=== PATIENT | female | born 1940 | race Caucasian/White ===

== ENCOUNTER → 2020-03-16 10:01 | Outpatient (CLI) | payer MEDICARE, OTHER, SELFPAY ==
--- NOTE | 2020-03-16 10:11 | RAD_ITS ---
STUDY: X-RAY - PELVIS REASON FOR EXAM: Female, 79 years old. inflammatory polyarthropathy TECHNIQUE: One view of the pelvis was obtained. COMPARISON: None. FINDINGS: There is a non-specific bowel gas pattern. Normal visualized soft tissue structures. Normal bilateral iliac wings, sacroiliac joints and visualized sacrum. Normal visualized bilateral superior and inferior pubic rami. Normal pubic symphysis. Normal ischial tuberosities. Normal visualized right femoral head. Normal right acetabulum. Normal right hip joint. Status post left total hip arthroplasty. The prosthesis appears located. No ostial lysis to suggest loosening.. RAD/Pelvis 1 or 2 Views IMPRESSION: Normal x-ray examination of the pelvis after total hip arthroplasty. Electronically Signed: Sebas Orellana MD at 16:54 EST Tel , Service support ,
[2020-03-16 12:34] LABS: Erythrocyte Sedimentation Rate 45 mm/hr (0-30)
[2020-03-16 12:41] LABS: Absolute Lymphocyte Count 2.04 X10^3/uL (0.83-4.51); Absolute Neutrophil Count 4.5 X10^3/uL (2.0-7.7); Basophil# 0.07 X10^3/uL; Eosinophil# 0.09 X10^3/uL; Eosinophils% 1.2 % (0-5); Hematocrit 41.1 % (37-47); Hemoglobin 13.4 g/dL (12.0-15.0); Lymphocyte # 2.04 X10^3/ul (4.0); Lymphocyte % 27.8 % (19-41); Mean Corp Hgb Conc 32.6 g/dL (32-36); Mean Corpuscular Hgb 30.3 pg (27.0-32.0); Mean Platelet Vol. 10.7 fl (6.2-12.0); Monocyte# 0.61 X10^3/uL; Monocyte% 8.3 % (0-10); NRBC Flagged by Analyzer 0 % (0-5); Neutrophil # 4.52 X10^3/uL (2.7-7.7); Neutrophil % 61.4 % (47-70); Platelet Count 310 K/mm3 (150-450); RBC Distribution Width CV 11.9 % (11.6-14.6); RBC Distribution Width SD 40.5 fl (35.1-43.9); Red Blood Count 4.42 M/mm3 (4.2-5.4); White Blood Count 7.4 K/mm3 (4.4-11.0)
[2020-03-16 12:43] LABS: ALB/GLOB Ratio 0.9 RATIO (0.9-2.4); AST(SGOT) 17 U/L (15-37); Alanine Aminotransfer ALT/SGPT 20 U/L (13-56); Albumin, Serum 3.9 g/dL (3.2-5.0); Alkaline Phosphatase 108 U/L (45-117); Anion Gap 4 (5-15); BUN 17 mg/dL (7-18); BUN/Creat Ratio 18.9 RATIO (10-20); CRP 7.96 mg/L (0.0-3.0); Calcium,Total 9.2 mg/dL (8.5-10.1); Chloride 105 mmol/L (98-107); EST Glomerular Filtration Rate 64 mL/min (>60); Est Glom Filt Rate - Afr Amer 77 mL/min (>60); Globulin 4.2 g/dL (2.2-4.2); Glucose 95 mg/dL (74-106); Potassium 3.9 mmol/L (3.5-5.1); Protein, Total 8.1 g/dL (6.4-8.2); Rheumatoid Factor < 10.0 IU/mL (<15); Sodium Level 138 mmol/L (136-145)
[2020-03-16 13:10] LABS: Hepatitis B Surf AB - EMP Non-Reactive; Hepatitis B Surface Antigen Non-Reactive (Nonreactive); Hepatitis C Antibody Non-Reactive (Nonreactive)
[2020-03-18 14:34] LABS: CCP IgG Antibodies 4 units (0-19); Hepatitis B Core AB IgM Negative (Negative)
== END ==
PROVIDERS: PCP Student in an Organized Health Care Education/Training Program; Referring Provider Internal Medicine Rheumatology; Visit Provider Internal Medicine Rheumatology
DX: M06.4 Inflammatory polyarthropathy (principal); M79.7 Fibromyalgia; M47.897 Other spondylosis, lumbosacral region; M48.02 Spinal stenosis, cervical region; K22.70 Barrett's esophagus without dysplasia
CPT/HCPCS: 36415; 72170; 80053; 85025; 85652; 86140; 86200; 86431; 86705; 86706; 86803; 87340

== ENCOUNTER → 2020-05-31 11:07 | Outpatient (CLI) | payer MEDICARE, OTHER, SELFPAY ==
[2020-05-31 12:23] LABS: Absolute Lymphocyte Count 2.38 X10^3/uL (0.83-4.51); Basophil# 0.07 X10^3/uL; Basophil% 1.1 % (0-1); Eosinophil# 0.13 X10^3/uL; Eosinophils% 2.1 % (0-5); Hematocrit 39.7 % (37-47); Hemoglobin 12.7 g/dL (12.0-15.0); Lymphocyte # 2.38 X10^3/ul (4.0); Lymphocyte % 38.4 % (19-41); Mean Corpuscular Hgb 30.5 pg (27.0-32.0); Mean Corpuscular Volume 95.4 fL (81-99); Mean Platelet Vol. 10.4 fl (6.2-12.0); Monocyte# 0.62 X10^3/uL; NRBC Flagged by Analyzer 0 % (0-5); Neutrophil # 2.99 X10^3/uL (2.7-7.7); Neutrophil % 48.2 % (47-70); Platelet Count 252 K/mm3 (150-450); RBC Distribution Width CV 13.2 % (11.6-14.6); RBC Distribution Width SD 45.9 fl (35.1-43.9); Red Blood Count 4.16 M/mm3 (4.2-5.4); White Blood Count 6.2 K/mm3 (4.4-11.0)
[2020-05-31 12:48] LABS: AST(SGOT) 20 U/L (15-37); Alanine Aminotransfer ALT/SGPT 22 U/L (13-56); Albumin, Serum 3.8 g/dL (3.2-5.0); Alkaline Phosphatase 98 U/L (45-117); Anion Gap 2 (5-15); BUN 23 mg/dL (7-18); BUN/Creat Ratio 23.5 RATIO (10-20); Calcium,Total 9.4 mg/dL (8.5-10.1); Chloride 102 mmol/L (98-107); Creatinine, Serum 0.98 mg/dL (0.55-1.02); EST Glomerular Filtration Rate 58 mL/min (>60); Est Glom Filt Rate - Afr Amer 70 mL/min (>60); Glucose 86 mg/dL (74-106); Potassium 4.3 mmol/L (3.5-5.1); Protein, Total 7.8 g/dL (6.4-8.2); Sodium Level 135 mmol/L (136-145)
== END ==
PROVIDERS: PCP Student in an Organized Health Care Education/Training Program; Referring Provider Internal Medicine Rheumatology; Visit Provider Internal Medicine Rheumatology
DX: M06.4 Inflammatory polyarthropathy (principal); M79.7 Fibromyalgia; M47.897 Other spondylosis, lumbosacral region; M48.02 Spinal stenosis, cervical region; K22.70 Barrett's esophagus without dysplasia; Q80.9 Congenital ichthyosis, unspecified; Z79.899 Other long term (current) drug therapy
CPT/HCPCS: 36415; 80053; 85025

== ENCOUNTER → 2020-07-13 09:52 | Outpatient (CLI) | payer MEDICARE, OTHER, SELFPAY ==
[2020-07-13 12:31] LABS: Absolute Lymphocyte Count 1.61 X10^3/uL (0.83-4.51); Basophil# 0.06 X10^3/uL; Eosinophil# 0.08 X10^3/uL; Eosinophils% 1.3 % (0-5); Hematocrit 40.8 % (37-47); Hemoglobin 12.8 g/dL (12.0-15.0); Lymphocyte # 1.61 X10^3/ul (0.83-4.51); Lymphocyte % 25.7 % (19-41); Mean Corp Hgb Conc 31.4 g/dL (32-36); Mean Corpuscular Volume 95.8 fL (81-99); Mean Platelet Vol. 10.4 fl (6.2-12.0); Monocyte# 0.48 X10^3/uL; Monocyte% 7.7 % (0-10); NRBC Flagged by Analyzer 0 % (0-5); Neutrophil # 4.03 X10^3/uL (2.7-7.7); Neutrophil % 64.1 % (47-70); Platelet Count 243 K/mm3 (150-450); RBC Distribution Width CV 13.7 % (11.6-14.6); RBC Distribution Width SD 47.8 fl (35.1-43.9); Red Blood Count 4.26 M/mm3 (4.2-5.4); White Blood Count 6.3 K/mm3 (4.4-11.0)
[2020-07-13 12:56] LABS: AST(SGOT) 16 U/L (15-37); Alanine Aminotransfer ALT/SGPT 22 U/L (13-56); Albumin, Serum 3.8 g/dL (3.2-5.0); Alkaline Phosphatase 81 U/L (45-117); Anion Gap 4 (5-15); BUN 21 mg/dL (7-18); BUN/Creat Ratio 20.4 RATIO (10-20); Calcium,Total 9.8 mg/dL (8.5-10.1); Chloride 103 mmol/L (98-107); Creatinine, Serum 1.03 mg/dL (0.55-1.02); EST Glomerular Filtration Rate 55 mL/min (>60); Est Glom Filt Rate - Afr Amer 66 mL/min (>60); Globulin 3.8 g/dL (2.2-4.2); Glucose 89 mg/dL (74-106); Potassium 4.1 mmol/L (3.5-5.1); Protein, Total 7.6 g/dL (6.4-8.2); Sodium Level 138 mmol/L (136-145)
== END ==
PROVIDERS: PCP Student in an Organized Health Care Education/Training Program; Referring Provider Internal Medicine Rheumatology; Visit Provider Internal Medicine Rheumatology
DX: M06.4 Inflammatory polyarthropathy (principal); M79.7 Fibromyalgia; M47.897 Other spondylosis, lumbosacral region; M48.02 Spinal stenosis, cervical region; K22.70 Barrett's esophagus without dysplasia; Q80.9 Congenital ichthyosis, unspecified; Z79.899 Other long term (current) drug therapy
CPT/HCPCS: 36415; 80053; 85025

== ENCOUNTER → 2020-10-01 14:25 | Outpatient (CLI) | payer MEDICARE, OTHER, SELFPAY ==
[2020-10-01 17:44] LABS: Absolute Lymphocyte Count 1.97 X10^3/uL (0.83-4.51); Absolute Neutrophil Count 4.6 X10^3/uL (2.0-7.7); Basophil# 0.06 X10^3/uL; Basophil% 0.8 % (0-1); Eosinophils% 1.4 % (0-5); Hematocrit 37.4 % (37-47); Lymphocyte # 1.97 X10^3/ul (0.83-4.51); Lymphocyte % 26.9 % (19-41); Mean Corp Hgb Conc 32.1 g/dL (32-36); Mean Corpuscular Hgb 31.8 pg (27.0-32.0); Mean Corpuscular Volume 99.2 fL (81-99); Monocyte# 0.56 X10^3/uL; Monocyte% 7.7 % (0-10); NRBC Flagged by Analyzer 0 % (0-5); Neutrophil # 4.61 X10^3/uL (2.7-7.7); Neutrophil % 62.9 % (47-70); Platelet Count 243 K/mm3 (150-450); RBC Distribution Width CV 14.3 % (11.6-14.6); RBC Distribution Width SD 51.4 fl (35.1-43.9); Red Blood Count 3.77 M/mm3 (4.2-5.4); White Blood Count 7.3 K/mm3 (4.4-11.0)
[2020-10-01 18:12] LABS: ALB/GLOB Ratio 1.1 RATIO (0.9-2.4); AST(SGOT) 22 U/L (15-37); Alanine Aminotransfer ALT/SGPT 32 U/L (13-56); Albumin, Serum 3.7 g/dL (3.2-5.0); Alkaline Phosphatase 83 U/L (45-117); Anion Gap 6 (5-15); BUN 16 mg/dL (7-18); Calcium,Total 8.8 mg/dL (8.5-10.1); Chloride 102 mmol/L (98-107); EST Glomerular Filtration Rate 57 mL/min (>60); Est Glom Filt Rate - Afr Amer 69 mL/min (>60); Globulin 3.5 g/dL (2.2-4.2); Glucose 120 mg/dL (74-106); Potassium 4.2 mmol/L (3.5-5.1); Protein, Total 7.2 g/dL (6.4-8.2); Sodium Level 137 mmol/L (136-145)
== END ==
PROVIDERS: PCP Student in an Organized Health Care Education/Training Program; Referring Provider Internal Medicine Rheumatology; Visit Provider Internal Medicine Rheumatology
DX: M06.4 Inflammatory polyarthropathy (principal); M79.7 Fibromyalgia; M47.897 Other spondylosis, lumbosacral region; M48.02 Spinal stenosis, cervical region; K22.70 Barrett's esophagus without dysplasia; Q80.9 Congenital ichthyosis, unspecified; Z79.899 Other long term (current) drug therapy
CPT/HCPCS: 36415; 80053; 85025

== ENCOUNTER → 2020-11-29 11:16 | Outpatient (CLI) | payer MEDICARE, OTHER, SELFPAY ==
[2020-11-29 15:29] LABS: Absolute Lymphocyte Count 2.13 X10^3/uL (0.83-4.51); Absolute Neutrophil Count 2.7 X10^3/uL (2.0-7.7); Basophil# 0.05 X10^3/uL; Basophil% 0.9 % (0-1); Eosinophil# 0.12 X10^3/uL; Eosinophils% 2.2 % (0-5); Hematocrit 40.2 % (37-47); Hemoglobin 12.9 g/dL (12.0-15.0); Lymphocyte # 2.13 X10^3/ul (0.83-4.51); Lymphocyte % 38.2 % (19-41); Mean Corp Hgb Conc 32.1 g/dL (32-36); Mean Corpuscular Hgb 32.3 pg (27.0-32.0); Mean Corpuscular Volume 100.8 fL (81-99); Mean Platelet Vol. 10.7 fl (6.2-12.0); Monocyte% 10.8 % (0-10); NRBC Flagged by Analyzer 0 % (0-5); Neutrophil # 2.66 X10^3/uL (2.7-7.7); Neutrophil % 47.7 % (47-70); Platelet Count 268 K/mm3 (150-450); RBC Distribution Width CV 13.6 % (11.6-14.6); RBC Distribution Width SD 49.7 fl (35.1-43.9); Red Blood Count 3.99 M/mm3 (4.2-5.4); White Blood Count 5.6 K/mm3 (4.4-11.0)
[2020-11-29 15:38] LABS: AST(SGOT) 19 U/L (15-37); Alanine Aminotransfer ALT/SGPT 25 U/L (13-56); Albumin, Serum 3.9 g/dL (3.2-5.0); Alkaline Phosphatase 90 U/L (45-117); Anion Gap 6 (5-15); BUN 16 mg/dL (7-18); BUN/Creat Ratio 17.3 RATIO (10-20); Calcium,Total 9.7 mg/dL (8.5-10.1); Chloride 103 mmol/L (98-107); Creatinine, Serum 0.92 mg/dL (0.55-1.02); EST Glomerular Filtration Rate 62 mL/min (>60); Est Glom Filt Rate - Afr Amer 75 mL/min (>60); Glucose 68 mg/dL (74-106); Potassium 4.2 mmol/L (3.5-5.1); Protein, Total 7.9 g/dL (6.4-8.2); Sodium Level 140 mmol/L (136-145)
== END ==
PROVIDERS: PCP Student in an Organized Health Care Education/Training Program; Referring Provider Internal Medicine Rheumatology; Visit Provider Internal Medicine Rheumatology
DX: M06.4 Inflammatory polyarthropathy (principal); Z79.899 Other long term (current) drug therapy; M79.7 Fibromyalgia; M47.897 Other spondylosis, lumbosacral region; M48.02 Spinal stenosis, cervical region; K22.70 Barrett's esophagus without dysplasia; Q80.9 Congenital ichthyosis, unspecified
CPT/HCPCS: 36415; 80053; 85025

== ENCOUNTER → 2021-01-14 15:07 | Outpatient (CLI) | payer MEDICARE, OTHER, SELFPAY ==
[2021-01-14 17:42] LABS: Absolute Lymphocyte Count 2.24 X10^3/uL (0.83-4.51); Absolute Neutrophil Count 4.9 X10^3/uL (2.0-7.7); Basophil# 0.06 X10^3/uL; Basophil% 0.8 % (0-1); Eosinophil# 0.11 X10^3/uL; Eosinophils% 1.4 % (0-5); Hematocrit 39.8 % (37-47); Hemoglobin 12.8 g/dL (12.0-15.0); Lymphocyte # 2.24 X10^3/ul (0.83-4.51); Lymphocyte % 28.4 % (19-41); Mean Corp Hgb Conc 32.2 g/dL (32-36); Mean Corpuscular Hgb 32.2 pg (27.0-32.0); Mean Corpuscular Volume 100.3 fL (81-99); Mean Platelet Vol. 10.8 fl (6.2-12.0); Monocyte% 7.6 % (0-10); NRBC Flagged by Analyzer 0 % (0-5); Neutrophil # 4.86 X10^3/uL (2.7-7.7); Neutrophil % 61.7 % (47-70); Platelet Count 242 K/mm3 (150-450); RBC Distribution Width CV 13.3 % (11.6-14.6); RBC Distribution Width SD 48.5 fl (35.1-43.9); Red Blood Count 3.97 M/mm3 (4.2-5.4); White Blood Count 7.9 K/mm3 (4.4-11.0)
[2021-01-14 18:09] LABS: ALB/GLOB Ratio 0.9 RATIO (0.9-2.4); AST(SGOT) 21 U/L (15-37); Alanine Aminotransfer ALT/SGPT 25 U/L (13-56); Albumin, Serum 3.6 g/dL (3.2-5.0); Alkaline Phosphatase 92 U/L (45-117); Anion Gap 5 (5-15); BUN 20 mg/dL (7-18); BUN/Creat Ratio 21.8 RATIO (10-20); Calcium,Total 9.2 mg/dL (8.5-10.1); Chloride 104 mmol/L (98-107); Creatinine, Serum 0.92 mg/dL (0.55-1.02); EST Glomerular Filtration Rate 63 mL/min (>60); Est Glom Filt Rate - Afr Amer 76 mL/min (>60); Glucose 76 mg/dL (74-106); Potassium 3.9 mmol/L (3.5-5.1); Protein, Total 7.6 g/dL (6.4-8.2); Sodium Level 139 mmol/L (136-145)
== END ==
PROVIDERS: PCP Student in an Organized Health Care Education/Training Program; Referring Provider Internal Medicine Rheumatology; Visit Provider Internal Medicine Rheumatology
DX: M06.4 Inflammatory polyarthropathy (principal); M79.7 Fibromyalgia; M47.897 Other spondylosis, lumbosacral region; M48.02 Spinal stenosis, cervical region; K22.70 Barrett's esophagus without dysplasia; Q80.9 Congenital ichthyosis, unspecified; Z79.899 Other long term (current) drug therapy
CPT/HCPCS: 36415; 80053; 85025

== ENCOUNTER 2021-04-06 12:33 | Outpatient (CLI) | payer MEDICARE, OTHER, SELFPAY ==
[2021-04-06 15:37] LABS: Absolute Lymphocyte Count 1.82 X10^3/uL (0.83-4.51); Absolute Neutrophil Count 3.1 X10^3/uL (2.0-7.7); Basophil# 0.06 X10^3/uL; Basophil% 1.1 % (0-1); Eosinophil# 0.03 X10^3/uL; Eosinophils% 0.6 % (0-5); Hematocrit 38.3 % (37-47); Hemoglobin 12.6 g/dL (12.0-15.0); Lymphocyte # 1.82 X10^3/ul (0.83-4.51); Lymphocyte % 33.4 % (19-41); Mean Corp Hgb Conc 32.9 g/dL (32-36); Mean Corpuscular Hgb 32.3 pg (27.0-32.0); Mean Corpuscular Volume 98.2 fL (81-99); Mean Platelet Vol. 10.6 fl (6.2-12.0); Monocyte# 0.45 X10^3/uL; Monocyte% 8.3 % (0-10); NRBC Flagged by Analyzer 0 % (0-5); Neutrophil # 3.08 X10^3/uL (2.7-7.7); Neutrophil % 56.4 % (47-70); Platelet Count 275 K/mm3 (150-450); RBC Distribution Width CV 13.4 % (11.6-14.6); RBC Distribution Width SD 47.1 fl (35.1-43.9); White Blood Count 5.5 K/mm3 (4.4-11.0)
[2021-04-06 15:52] LABS: ALB/GLOB Ratio 1.1 RATIO (0.9-2.4); AST(SGOT) 26 U/L (15-37); Alanine Aminotransfer ALT/SGPT 32 U/L (13-56); Alkaline Phosphatase 107 U/L (45-117); Anion Gap 8 (5-15); BUN 20 mg/dL (7-18); BUN/Creat Ratio 19.4 RATIO (10-20); Calcium,Total 9.4 mg/dL (8.5-10.1); Chloride 101 mmol/L (98-107); Creatinine, Serum 1.03 mg/dL (0.55-1.02); EST Glomerular Filtration Rate 55 mL/min (>60); Est Glom Filt Rate - Afr Amer 66 mL/min (>60); Globulin 3.8 g/dL (2.2-4.2); Glucose 91 mg/dL (74-106); Potassium 3.9 mmol/L (3.5-5.1); Protein, Total 7.8 g/dL (6.4-8.2); Sodium Level 136 mmol/L (136-145)
== END 2021-04-06 23:59 | disposition home or self-care (01) ==
LOC: MTLAB 12:35
PROVIDERS: PCP Student in an Organized Health Care Education/Training Program; Referring Provider Internal Medicine Rheumatology; Visit Provider Internal Medicine Rheumatology
DX: M06.4 Inflammatory polyarthropathy (principal); M79.7 Fibromyalgia; M47.897 Other spondylosis, lumbosacral region; M48.02 Spinal stenosis, cervical region; K22.70 Barrett's esophagus without dysplasia; Q80.9 Congenital ichthyosis, unspecified; Z79.899 Other long term (current) drug therapy
CPT/HCPCS: 36415; 80053; 85025

== ENCOUNTER → 2021-07-06 | Outpatient (CLI) | payer MEDICARE, OTHER, SELFPAY ==
[2021-07-06 10:11] LABS: Absolute Lymphocyte Count 1.75 X10^3/uL (0.83-4.51); Absolute Neutrophil Count 3.7 X10^3/uL (2.0-7.7); Basophil# 0.04 X10^3/uL; Basophil% 0.7 % (0-1); Eosinophil# 0.05 X10^3/uL; Eosinophils% 0.8 % (0-5); Hematocrit 39.8 % (37-47); Hemoglobin 13.2 g/dL (12.0-15.0); Lymphocyte # 1.75 X10^3/ul (0.83-4.51); Lymphocyte % 28.8 % (19-41); Mean Corp Hgb Conc 33.2 g/dL (32-36); Mean Corpuscular Hgb 32.3 pg (27.0-32.0); Mean Corpuscular Volume 97.3 fL (81-99); Monocyte# 0.54 X10^3/uL; Monocyte% 8.9 % (0-10); NRBC Flagged by Analyzer 0 % (0-5); Neutrophil # 3.67 X10^3/uL (2.7-7.7); Neutrophil % 60.5 % (47-70); Platelet Count 273 K/mm3 (150-450); RBC Distribution Width CV 13.3 % (11.6-14.6); RBC Distribution Width SD 47.5 fl (35.1-43.9); Red Blood Count 4.09 M/mm3 (4.2-5.4); White Blood Count 6.1 K/mm3 (4.4-11.0)
[2021-07-06 10:30] LABS: AST(SGOT) 18 U/L (15-37); Alanine Aminotransfer ALT/SGPT 21 U/L (13-56); Albumin, Serum 3.6 g/dL (3.2-5.0); Alkaline Phosphatase 79 U/L (45-117); Anion Gap 5 (5-15); BUN 16 mg/dL (7-18); BUN/Creat Ratio 15.2 RATIO (10-20); Calcium,Total 9.2 mg/dL (8.5-10.1); Chloride 101 mmol/L (98-107); Creatinine, Serum 1.05 mg/dL (0.55-1.02); EST Glomerular Filtration Rate 53 mL/min (>60); Est Glom Filt Rate - Afr Amer 65 mL/min (>60); Globulin 3.7 g/dL (2.2-4.2); Glucose 127 mg/dL (74-106); Potassium 3.9 mmol/L (3.5-5.1); Protein, Total 7.3 g/dL (6.4-8.2); Sodium Level 136 mmol/L (136-145)
== END | disposition home or self-care (01) ==
PROVIDERS: PCP Student in an Organized Health Care Education/Training Program; Referring Provider Internal Medicine Rheumatology; Visit Provider Internal Medicine Rheumatology
DX: M06.4 Inflammatory polyarthropathy (principal); M79.7 Fibromyalgia; M47.897 Other spondylosis, lumbosacral region; M48.02 Spinal stenosis, cervical region; K22.70 Barrett's esophagus without dysplasia; Q80.9 Congenital ichthyosis, unspecified; Z79.899 Other long term (current) drug therapy
CPT/HCPCS: 36415; 80053; 85025

== ENCOUNTER → 2021-10-10 | Outpatient (CLI) | payer MEDICARE, OTHER, SELFPAY ==
[2021-10-10 12:05] LABS: Absolute Lymphocyte Count 1.93 X10^3/uL (0.83-4.51); Absolute Neutrophil Count 2.9 X10^3/uL (2.0-7.7); Basophil# 0.04 X10^3/uL; Basophil% 0.7 % (0-1); Eosinophil# 0.11 X10^3/uL; Hematocrit 37.5 % (37-47); Hemoglobin 12.3 g/dL (12.0-15.0); Lymphocyte # 1.93 X10^3/ul (0.83-4.51); Lymphocyte % 34.4 % (19-41); Mean Corp Hgb Conc 32.8 g/dL (32-36); Mean Corpuscular Hgb 32.5 pg (27.0-32.0); Mean Corpuscular Volume 99.2 fL (81-99); Mean Platelet Vol. 10.6 fl (6.2-12.0); Monocyte# 0.62 X10^3/uL; Monocyte% 11.1 % (0-10); NRBC Flagged by Analyzer 0 % (0-5); Neutrophil % 51.6 % (47-70); Platelet Count 238 K/mm3 (150-450); RBC Distribution Width CV 13.6 % (11.6-14.6); RBC Distribution Width SD 48.9 fl (35.1-43.9); Red Blood Count 3.78 M/mm3 (4.2-5.4); White Blood Count 5.6 K/mm3 (4.4-11.0)
[2021-10-10 12:34] LABS: ALB/GLOB Ratio 1.1 RATIO (0.9-2.4); AST(SGOT) 17 U/L (15-37); Alanine Aminotransfer ALT/SGPT 17 U/L (13-56); Albumin, Serum 3.7 g/dL (3.2-5.0); Alkaline Phosphatase 70 U/L (45-117); Anion Gap 7 (5-15); BUN 19 mg/dL (7-18); BUN/Creat Ratio 19.4 RATIO (10-20); Calcium,Total 9.1 mg/dL (8.5-10.1); Chloride 102 mmol/L (98-107); Creatinine, Serum 0.98 mg/dL (0.55-1.02); EST Glomerular Filtration Rate 58 mL/min (>60); Est Glom Filt Rate - Afr Amer 70 mL/min (>60); Globulin 3.5 g/dL (2.2-4.2); Glucose 100 mg/dL (74-106); Potassium 4.2 mmol/L (3.5-5.1); Protein, Total 7.2 g/dL (6.4-8.2); Sodium Level 137 mmol/L (136-145)
== END | disposition home or self-care (01) ==
LOC: MTLAB 11:04
PROVIDERS: PCP Student in an Organized Health Care Education/Training Program; Referring Provider Internal Medicine Rheumatology; Visit Provider Internal Medicine Rheumatology
DX: M06.4 Inflammatory polyarthropathy (principal); M79.7 Fibromyalgia; M47.897 Other spondylosis, lumbosacral region; M48.02 Spinal stenosis, cervical region; K22.70 Barrett's esophagus without dysplasia; Q80.9 Congenital ichthyosis, unspecified; Z79.899 Other long term (current) drug therapy
CPT/HCPCS: 36415; 80053; 85025

== ENCOUNTER → 2021-12-06 | Outpatient (CLI) | payer MEDICARE, OTHER, SELFPAY ==
--- NOTE | 2021-12-06 07:18 | MRI_ITS ---
STUDY: MRI LUMBAR SPINE WITHOUT CONTRAST REASON FOR EXAM: Female, 81 years old. pain X 2 MONTHS INTO R LEG, NO KNOWN TRAUMA TECHNIQUE: Standardized fat and water weighted pulse sequences were obtained in the sagittal and axial planes. COMPARISON: None FINDINGS: Mild levoscoliosis of the thoracolumbar spine. There is a grade 2 spondylolisthesis at L5-S1 and a grade 1 spondylolisthesis at L4-5. For the purposes of this report the lowest completely lumbarized vertebral body is designated L5. Utilizing this numbering system there is partial lumbarization of the S1 segment. T12-L1: Mild disc desiccation. L1-2: Moderate disc desiccation, mild disc bulging, mild bilateral neural foraminal encroachment. L2-3: Moderate disc desiccation, mild disc bulging, mild bilateral facet arthropathy and ligamentous hypertrophy, moderate bilateral neural foraminal encroachment. L3-4: Moderate disc desiccation and loss of disc space height, moderate disc bulging, moderate bilateral facet arthropathy and ligamentous hypertrophy, mild spinal lipomatosis, moderate central stenosis with AP diameter of the thecal sac 0.62 cm, moderate bilateral neural foraminal encroachment. L4-5: Moderate disc desiccation, severe loss of disc space height, moderate pseudobulge, moderate bilateral facet arthropathy and ligamentous hypertrophy, moderate spinal lipomatosis, severe central stenosis with AP diameter of the thecal sac 0.39 cm, moderate bilateral neural foraminal encroachment L5-S1: Moderate disc desiccation and loss of disc space height, moderate pseudobulge, severe bilateral facet arthropathy, moderate ligamentous hypertrophy, mild spinal lipomatosis, moderate central stenosis with AP diameter of the thecal sac 0.61 cm, moderate bilateral neural foraminal encroachment. Normal visualized sacral ala. Normal visualized paraspinous soft tissue structures. MRI/Spine Lumbar (Routine) IMPRESSION: Grade 2 spondylolisthesis L5-S1 and grade 1 spondylolisthesis L4-5 with moderate pseudobulge and at both of these levels. Moderate disc bulging L3-4 with mild disc bulging L1-L3. Multilevel degenerative disc disease, central stenosis, facet arthropathy and neural foraminal encroachment as above. Electronically Signed: Diego Medina MD, LEILA at 11:39 EDT ,
== END | disposition home or self-care (01) ==
LOC: MRI 07:18
PROVIDERS: PCP Student in an Organized Health Care Education/Training Program; Referring Provider Orthopaedic Surgery; Visit Provider Orthopaedic Surgery
DX: S30.0XXA Contusion of lower back and pelvis, initial encounter (principal); Z85.3 Personal history of malignant neoplasm of breast; M51.24 Other intervertebral disc displacement, thoracic region
CPT/HCPCS: 72148

== ENCOUNTER → 2021-12-27 | Outpatient (CLI) | payer MEDICARE, OTHER, SELFPAY ==
[2021-12-27 12:27] LABS: Absolute Lymphocyte Count 1.59 X10^3/uL (0.83-4.51); Absolute Neutrophil Count 3.1 X10^3/uL (2.0-7.7); Basophil# 0.07 X10^3/uL; Basophil% 1.3 % (0-1); Eosinophil# 0.13 X10^3/uL; Eosinophils% 2.4 % (0-5); Hematocrit 39.5 % (37-47); Hemoglobin 12.9 g/dL (12.0-15.0); Lymphocyte # 1.59 X10^3/ul (0.83-4.51); Lymphocyte % 29.3 % (19-41); Mean Corp Hgb Conc 32.7 g/dL (32-36); Mean Corpuscular Hgb 32.7 pg (27.0-32.0); Mean Platelet Vol. 10.3 fl (6.2-12.0); Monocyte% 9.2 % (0-10); NRBC Flagged by Analyzer 0 % (0-5); Neutrophil # 3.12 X10^3/uL (2.7-7.7); Neutrophil % 57.6 % (47-70); Platelet Count 263 K/mm3 (150-450); RBC Distribution Width CV 13.3 % (11.6-14.6); RBC Distribution Width SD 48.7 fl (35.1-43.9); Red Blood Count 3.95 M/mm3 (4.2-5.4); White Blood Count 5.4 K/mm3 (4.4-11.0)
[2021-12-27 12:31] LABS: ALB/GLOB Ratio 0.9 RATIO (0.9-2.4); AST(SGOT) 18 U/L (15-37); Alanine Aminotransfer ALT/SGPT 20 U/L (13-56); Albumin, Serum 3.6 g/dL (3.2-5.0); Alkaline Phosphatase 91 U/L (45-117); Anion Gap 5 (5-15); BUN 14 mg/dL (7-18); BUN/Creat Ratio 14.7 RATIO (10-20); Calcium,Total 9.4 mg/dL (8.5-10.1); Chloride 103 mmol/L (98-107); Creatinine, Serum 0.96 mg/dL (0.55-1.02); EST Glomerular Filtration Rate 60 mL/min (>60); Est Glom Filt Rate - Afr Amer 72 mL/min (>60); Globulin 3.8 g/dL (2.2-4.2); Glucose 99 mg/dL (74-106); Potassium 3.6 mmol/L (3.5-5.1); Protein, Total 7.4 g/dL (6.4-8.2); Sodium Level 137 mmol/L (136-145)
== END | disposition home or self-care (01) ==
LOC: MTLAB 09:47
PROVIDERS: PCP Student in an Organized Health Care Education/Training Program; Referring Provider Internal Medicine Rheumatology; Visit Provider Internal Medicine Rheumatology
DX: M06.4 Inflammatory polyarthropathy (principal); K22.70 Barrett's esophagus without dysplasia; Q80.9 Congenital ichthyosis, unspecified; Z79.899 Other long term (current) drug therapy
CPT/HCPCS: 36415; 80053; 85025

== ENCOUNTER → 2022-04-03 | Outpatient (CLI) | payer MEDICARE, OTHER, SELFPAY ==
[2022-04-03 12:14] LABS: Absolute Lymphocyte Count 1.72 X10^3/uL (0.83-4.51); Absolute Neutrophil Count 4.5 X10^3/uL (2.0-7.7); Basophil# 0.06 X10^3/uL; Basophil% 0.9 % (0-1); Eosinophil# 0.14 X10^3/uL; Hematocrit 40.8 % (37-47); Hemoglobin 12.8 g/dL (12.0-15.0); Lymphocyte # 1.72 X10^3/ul (0.83-4.51); Lymphocyte % 24.5 % (19-41); Mean Corp Hgb Conc 31.4 g/dL (32-36); Mean Corpuscular Hgb 31.8 pg (27.0-32.0); Mean Corpuscular Volume 101.5 fL (81-99); Mean Platelet Vol. 10.5 fl (6.2-12.0); Monocyte# 0.59 X10^3/uL; Monocyte% 8.4 % (0-10); NRBC Flagged by Analyzer 0 % (0-5); Neutrophil # 4.49 X10^3/uL (2.7-7.7); Neutrophil % 63.9 % (47-70); Platelet Count 265 K/mm3 (150-450); RBC Distribution Width CV 13.9 % (11.6-14.6); RBC Distribution Width SD 51.9 fl (35.1-43.9); Red Blood Count 4.02 M/mm3 (4.2-5.4)
[2022-04-03 12:44] LABS: AST(SGOT) 22 U/L (15-37); Alanine Aminotransfer ALT/SGPT 18 U/L (13-56); Albumin, Serum 3.7 g/dL (3.2-5.0); Alkaline Phosphatase 84 U/L (45-117); Anion Gap 5 (5-15); BUN 17 mg/dL (7-18); BUN/Creat Ratio 16.5 RATIO (10-20); Calcium,Total 9.5 mg/dL (8.5-10.1); Chloride 105 mmol/L (98-107); Creatinine, Serum 1.03 mg/dL (0.55-1.02); EST Glomerular Filtration Rate 55 mL/min (>60); Est Glom Filt Rate - Afr Amer 66 mL/min (>60); Globulin 3.7 g/dL (2.2-4.2); Glucose 85 mg/dL (74-106); Potassium 3.9 mmol/L (3.5-5.1); Protein, Total 7.4 g/dL (6.4-8.2); Sodium Level 139 mmol/L (136-145)
== END | disposition home or self-care (01) ==
LOC: MTLAB 10:40
PROVIDERS: PCP Student in an Organized Health Care Education/Training Program; Referring Provider Internal Medicine Rheumatology; Visit Provider Internal Medicine Rheumatology
DX: M06.4 Inflammatory polyarthropathy (principal); Z79.899 Other long term (current) drug therapy
CPT/HCPCS: 36415; 80053; 85025

== ENCOUNTER → 2022-06-23 | Outpatient (CLI) | payer MEDICARE, OTHER, SELFPAY ==
[2022-06-23 12:15] LABS: Absolute Lymphocyte Count 1.97 X10^3/uL (0.83-4.51); Absolute Neutrophil Count 3.6 X10^3/uL (2.0-7.7); Basophil# 0.05 X10^3/uL; Basophil% 0.8 % (0-1); Eosinophils% 1.6 % (0-5); Hematocrit 39.6 % (37-47); Hemoglobin 12.6 g/dL (12.0-15.0); Lymphocyte # 1.97 X10^3/ul (0.83-4.51); Lymphocyte % 31.7 % (19-41); Mean Corp Hgb Conc 31.8 g/dL (32-36); Mean Corpuscular Hgb 32.1 pg (27.0-32.0); Mean Platelet Vol. 10.4 fl (6.2-12.0); Monocyte# 0.53 X10^3/uL; Monocyte% 8.5 % (0-10); NRBC Flagged by Analyzer 0 % (0-5); Neutrophil # 3.55 X10^3/uL (2.7-7.7); Neutrophil % 57.2 % (47-70); Platelet Count 271 K/mm3 (150-450); RBC Distribution Width CV 13.6 % (11.6-14.6); RBC Distribution Width SD 49.8 fl (35.1-43.9); Red Blood Count 3.92 M/mm3 (4.2-5.4); White Blood Count 6.2 K/mm3 (4.4-11.0)
[2022-06-23 12:43] LABS: ALB/GLOB Ratio 1.1 RATIO (0.9-2.4); AST(SGOT) 22 U/L (15-37); Alanine Aminotransfer ALT/SGPT 23 U/L (13-56); Albumin, Serum 3.8 g/dL (3.2-5.0); Alkaline Phosphatase 86 U/L (45-117); Anion Gap 3 (5-15); BUN 21 mg/dL (7-18); BUN/Creat Ratio 21.6 RATIO (10-20); Calcium,Total 9.6 mg/dL (8.5-10.1); Chloride 102 mmol/L (98-107); Creatinine, Serum 0.97 mg/dL (0.55-1.02); EST Glomerular Filtration Rate 58 mL/min (>60); Est Glom Filt Rate - Afr Amer 71 mL/min (>60); Globulin 3.6 g/dL (2.2-4.2); Glucose 108 mg/dL (74-106); Potassium 3.7 mmol/L (3.5-5.1); Protein, Total 7.4 g/dL (6.4-8.2); Sodium Level 136 mmol/L (136-145)
== END | disposition home or self-care (01) ==
LOC: MTLAB 09:46
PROVIDERS: PCP Student in an Organized Health Care Education/Training Program; Referring Provider Internal Medicine Rheumatology; Visit Provider Internal Medicine Rheumatology
DX: M06.4 Inflammatory polyarthropathy (principal); Z79.899 Other long term (current) drug therapy
CPT/HCPCS: 36415; 80053; 85025

== ENCOUNTER → 2022-09-14 | Outpatient (CLI) | payer MEDICARE, OTHER, SELFPAY ==
[2022-09-14 15:50] LABS: Absolute Lymphocyte Count 1.75 X10^3/uL (0.83-4.51); Absolute Neutrophil Count 2.3 X10^3/uL (2.0-7.7); Basophil# 0.06 X10^3/uL; Basophil% 1.3 % (0-1); Eosinophil# 0.08 X10^3/uL; Eosinophils% 1.7 % (0-5); Hemoglobin 12.9 g/dL (12.0-15.0); Lymphocyte # 1.75 X10^3/ul (0.83-4.51); Mean Corp Hgb Conc 31.5 g/dL (32-36); Mean Corpuscular Hgb 32.1 pg (27.0-32.0); Mean Platelet Vol. 11.4 fl (6.2-12.0); Monocyte# 0.36 X10^3/uL; Monocyte% 7.8 % (0-10); NRBC Flagged by Analyzer 0 % (0-5); Neutrophil # 2.34 X10^3/uL (2.7-7.7); Platelet Count 226 K/mm3 (150-450); RBC Distribution Width CV 13.2 % (11.6-14.6); RBC Distribution Width SD 48.8 fl (35.1-43.9); Red Blood Count 4.02 M/mm3 (4.2-5.4); White Blood Count 4.6 K/mm3 (4.4-11.0)
[2022-09-14 16:36] LABS: AST(SGOT) 23 U/L (15-37); Alanine Aminotransfer ALT/SGPT 23 U/L (13-56); Albumin, Serum 3.8 g/dL (3.2-5.0); Alkaline Phosphatase 86 U/L (45-117); Anion Gap 6 (5-15); BUN 18 mg/dL (7-18); BUN/Creat Ratio 17.1 RATIO (10-20); Calcium,Total 9.5 mg/dL (8.5-10.1); Chloride 102 mmol/L (98-107); Creatinine, Serum 1.05 mg/dL (0.55-1.02); EST Glomerular Filtration Rate 53 mL/min (>60); Est Glom Filt Rate - Afr Amer 65 mL/min (>60); Globulin 3.7 g/dL (2.2-4.2); Glucose 92 mg/dL (74-106); Potassium 3.9 mmol/L (3.5-5.1); Protein, Total 7.5 g/dL (6.4-8.2); Sodium Level 137 mmol/L (136-145)
== END | disposition home or self-care (01) ==
LOC: MTLAB 11:13
PROVIDERS: PCP Student in an Organized Health Care Education/Training Program; Visit Provider Internal Medicine Rheumatology
DX: M06.4 Inflammatory polyarthropathy (principal); M79.7 Fibromyalgia; Z79.899 Other long term (current) drug therapy
CPT/HCPCS: 36415; 80053; 85025

== ENCOUNTER → 2022-12-06 | Outpatient (CLI) | payer MEDICARE, OTHER, SELFPAY ==
[2022-12-06 15:19] LABS: Absolute Lymphocyte Count 2.21 X10^3/uL (0.83-4.51); Absolute Neutrophil Count 1.9 X10^3/uL (2.0-7.7); Basophil# 0.05 X10^3/uL; Basophil% 1.1 % (0-1); Eosinophil# 0.08 X10^3/uL; Eosinophils% 1.7 % (0-5); Hematocrit 38.3 % (37-47); Hemoglobin 12.2 g/dL (12.0-15.0); Lymphocyte # 2.21 X10^3/ul (0.83-4.51); Lymphocyte % 47.9 % (19-41); Mean Corp Hgb Conc 31.9 g/dL (32-36); Mean Corpuscular Hgb 31.9 pg (27.0-32.0); Mean Corpuscular Volume 100.3 fL (81-99); Mean Platelet Vol. 10.5 fl (6.2-12.0); Monocyte# 0.32 X10^3/uL; Monocyte% 6.9 % (0-10); NRBC Flagged by Analyzer 0 % (0-5); Neutrophil # 1.94 X10^3/uL (2.7-7.7); Neutrophil % 42.2 % (47-70); Platelet Count 261 K/mm3 (150-450); RBC Distribution Width CV 13.8 % (11.6-14.6); RBC Distribution Width SD 49.3 fl (35.1-43.9); Red Blood Count 3.82 M/mm3 (4.2-5.4); White Blood Count 4.6 K/mm3 (4.4-11.0)
[2022-12-06 15:50] LABS: AST(SGOT) 23 U/L (15-37); Alanine Aminotransfer ALT/SGPT 33 U/L (13-56); Albumin, Serum 3.6 g/dL (3.2-5.0); Alkaline Phosphatase 86 U/L (45-117); Anion Gap 5 (5-15); BUN 26 mg/dL (7-18); BUN/Creat Ratio 23.2 RATIO (10-20); Calcium,Total 9.6 mg/dL (8.5-10.1); Chloride 103 mmol/L (98-107); Creatinine, Serum 1.12 mg/dL (0.55-1.02); EST Glomerular Filtration Rate 49 mL/min (>60); Est Glom Filt Rate - Afr Amer 60 mL/min (>60); Globulin 3.7 g/dL (2.2-4.2); Glucose 131 mg/dL (74-106); Potassium 4.3 mmol/L (3.5-5.1); Protein, Total 7.3 g/dL (6.4-8.2); Sodium Level 136 mmol/L (136-145)
== END | disposition home or self-care (01) ==
PROVIDERS: PCP Student in an Organized Health Care Education/Training Program; Referring Provider Internal Medicine Rheumatology; Visit Provider Internal Medicine Rheumatology
DX: M06.4 Inflammatory polyarthropathy (principal); M79.7 Fibromyalgia; Z79.899 Other long term (current) drug therapy
CPT/HCPCS: 36415; 80053; 85025

== ENCOUNTER → 2023-01-16 | Outpatient (CLI) | payer MEDICARE, OTHER, SELFPAY ==
[2023-01-16 16:53] LABS: ALB/GLOB Ratio 1.1 RATIO (0.9-2.4); AST(SGOT) 26 U/L (15-37); Alanine Aminotransfer ALT/SGPT 28 U/L (13-56); Albumin, Serum 3.9 g/dL (3.2-5.0); Alkaline Phosphatase 87 U/L (45-117); Anion Gap 6 (5-15); BUN 19 mg/dL (7-18); BUN/Creat Ratio 18.4 RATIO (10-20); Calcium,Total 9.4 mg/dL (8.5-10.1); Chloride 102 mmol/L (98-107); Creatinine, Serum 1.03 mg/dL (0.55-1.02); EST Glomerular Filtration Rate 54 mL/min (>60); Est Glom Filt Rate - Afr Amer 66 mL/min (>60); Globulin 3.7 g/dL (2.2-4.2); Glucose 109 mg/dL (74-106); Potassium 4.3 mmol/L (3.5-5.1); Protein, Total 7.6 g/dL (6.4-8.2); Sodium Level 137 mmol/L (136-145)
== END | disposition home or self-care (01) ==
LOC: MTLAB 13:10
PROVIDERS: PCP Student in an Organized Health Care Education/Training Program; Referring Provider Internal Medicine Rheumatology; Visit Provider Internal Medicine Rheumatology
DX: M06.4 Inflammatory polyarthropathy (principal); M79.7 Fibromyalgia; Z79.899 Other long term (current) drug therapy
CPT/HCPCS: 36415; 80053

== ENCOUNTER → 2023-04-23 | Outpatient (CLI) | payer MEDICARE, OTHER, SELFPAY ==
[2023-04-23 10:07] LABS: Absolute Lymphocyte Count 3.07 X10^3/uL (0.83-4.51); Absolute Neutrophil Count 2.8 X10^3/uL (2.0-7.7); Basophil# 0.07 X10^3/uL; Eosinophil# 0.22 X10^3/uL; Eosinophils% 3.2 % (0-5); Hematocrit 39.9 % (37-47); Hemoglobin 12.5 g/dL (12.0-15.0); Lymphocyte # 3.07 X10^3/ul (0.83-4.51); Lymphocyte % 45.2 % (19-41); Mean Corp Hgb Conc 31.3 g/dL (32-36); Mean Corpuscular Hgb 30.7 pg (27.0-32.0); Mean Platelet Vol. 9.9 fl (6.2-12.0); Monocyte# 0.66 X10^3/uL; Monocyte% 9.7 % (0-10); NRBC Flagged by Analyzer 0 % (0-5); Neutrophil # 2.76 X10^3/uL (2.7-7.7); Neutrophil % 40.8 % (47-70); Platelet Count 268 K/mm3 (150-450); RBC Distribution Width CV 14.6 % (11.6-14.6); RBC Distribution Width SD 51.8 fl (35.1-43.9); Red Blood Count 4.07 M/mm3 (4.2-5.4); White Blood Count 6.8 K/mm3 (4.4-11.0)
[2023-04-23 10:49] LABS: AST(SGOT) 21 U/L (15-37); Alanine Aminotransfer ALT/SGPT 21 U/L (13-56); Albumin, Serum 3.7 g/dL (3.2-5.0); Alkaline Phosphatase 94 U/L (45-117); Anion Gap 6 (5-15); BUN 17 mg/dL (7-18); BUN/Creat Ratio 16.7 RATIO (10-20); Calcium,Total 9.4 mg/dL (8.5-10.1); Chloride 106 mmol/L (98-107); Creatinine, Serum 1.02 mg/dL (0.55-1.02); EST Glomerular Filtration Rate 55 mL/min (>60); Est Glom Filt Rate - Afr Amer 67 mL/min (>60); Globulin 3.7 g/dL (2.2-4.2); Glucose 81 mg/dL (74-106); Protein, Total 7.4 g/dL (6.4-8.2); Sodium Level 140 mmol/L (136-145)
== END | disposition home or self-care (01) ==
LOC: MTLAB 09:23
PROVIDERS: PCP Student in an Organized Health Care Education/Training Program; Referring Provider Internal Medicine Rheumatology; Visit Provider Internal Medicine Rheumatology
DX: M06.4 Inflammatory polyarthropathy (principal); M79.7 Fibromyalgia; Z79.899 Other long term (current) drug therapy
CPT/HCPCS: 36415; 80053; 85025

== ENCOUNTER → 2023-07-30 | Outpatient (CLI) | payer MEDICARE, OTHER, SELFPAY ==
[2023-07-30 15:03] LABS: Absolute Lymphocyte Count 2.68 X10^3/uL (0.83-4.51); Basophil# 0.07 X10^3/uL; Basophil% 0.8 % (0-1); Eosinophil# 0.08 X10^3/uL; Eosinophils% 0.9 % (0-5); Hematocrit 38.6 % (37-47); Hemoglobin 12.2 g/dL (12.0-15.0); Lymphocyte # 2.68 X10^3/ul (0.83-4.51); Lymphocyte % 30.9 % (19-41); Mean Corp Hgb Conc 31.6 g/dL (32-36); Mean Corpuscular Hgb 32.4 pg (27.0-32.0); Mean Corpuscular Volume 102.7 fL (81-99); Mean Platelet Vol. 10.4 fl (6.2-12.0); Monocyte# 0.74 X10^3/uL; Monocyte% 8.5 % (0-10); NRBC Flagged by Analyzer 0 % (0-5); Neutrophil % 57.6 % (47-70); Platelet Count 257 K/mm3 (150-450); RBC Distribution Width CV 14.7 % (11.6-14.6); RBC Distribution Width SD 54.4 fl (35.1-43.9); Red Blood Count 3.76 M/mm3 (4.2-5.4); White Blood Count 8.7 K/mm3 (4.4-11.0)
[2023-07-30 15:50] LABS: ALB/GLOB Ratio 0.9 RATIO (0.9-2.4); AST(SGOT) 20 U/L (15-37); Alanine Aminotransfer ALT/SGPT 23 U/L (13-56); Albumin, Serum 3.5 g/dL (3.2-5.0); Alkaline Phosphatase 93 U/L (45-117); Anion Gap 6 (5-15); BUN 14 mg/dL (7-18); BUN/Creat Ratio 13.7 RATIO (10-20); Calcium,Total 8.2 mg/dL (8.5-10.1); Chloride 102 mmol/L (98-107); Creatinine, Serum 1.02 mg/dL (0.55-1.02); EST Glomerular Filtration Rate 55 mL/min (>60); Est Glom Filt Rate - Afr Amer 67 mL/min (>60); Globulin 3.7 g/dL (2.2-4.2); Glucose 129 mg/dL (74-106); Potassium 4.2 mmol/L (3.5-5.1); Protein, Total 7.2 g/dL (6.4-8.2); Sodium Level 136 mmol/L (136-145)
== END | disposition home or self-care (01) ==
LOC: MTLAB 12:46
PROVIDERS: PCP Student in an Organized Health Care Education/Training Program; Referring Provider Internal Medicine Rheumatology; Visit Provider Internal Medicine Rheumatology
DX: M06.4 Inflammatory polyarthropathy (principal); M79.7 Fibromyalgia; Z79.899 Other long term (current) drug therapy
CPT/HCPCS: 36415; 80053; 85025

== ENCOUNTER 2023-08-10 08:00 | Outpatient (RCR) | payer MEDICARE, OTHER, SELFPAY ==
--- NOTE | 2023-03-28 11:05 | HP.PTEVAL ---
Patient's Visit Information Visit Information Visit Information: CHUY GARG is a 82 year old F referred to Physical Therapy by Dr. Nery Vasquez MD with a diagnosis of LUMBAR SPINAL STENOSIS AND SPONDYLOSIS. Date of Evaluation: 03/28/23 Physical Therapist: Cheyanne Martinez PT, Cert MDT Visit Plan Frequency: 2x /Week Duration: 4-6 Weeks Plan: Aquatic Therapy for Back and LE pain relief. Neutral Spine Core Stability Exercises and Ben LE Hip Flexor, Hamstring and Calf Stretching to help reduce stress to the Lumbar Spine with all Daily Activities. Ben LE Strengthening. Instruction in Proper Posture Control, Body Mechanics, and Appropriate Activity Modifications. HEP Instruction. Subjective Subjective: Work/Leisure: [employer]. MOSTLY RETIRED. GOES UP AND DOWN STEPS AT HOME SEVERAL TIMES A DAY. LIVES WITH . HAD TSR DEC 27 2022 AND PATIENT HELPED TAKE CARE OF HIM. Present symptoms: LOW BACK PAIN AND PAIN ALL DOWN LEGS TO FEET. FEET FEEL REAL TIGHT AND RESTRICTED. R HIP PAIN. DENIES LE NUMBNESS AND TINGLING. Present since: ABOUT A YEAR AGO Pain Scale: WORST 6/10, LEAST 2/10 Currently: 2/10 Is it getting better, worse or staying the same: WORSENING OVER THE LAST FEW MONTHS. Commenced as a result of: NO APPARENT REASON Symptoms at onset: LOW BACK PAIN Worse: SOME YOGA MOVES, WALKING A LOT, GOING UP AND DOWN STEPS (NOW I DO ONE STEP AT A TIME BECAUSE OF THE PAIN), COLD WEATHER, LIFTING. WHEN I MOVE Better: GABAPENTIN, TYLONOL, SOME YOGA MOVES, SITTING Disturbed sleep: YES Previous history/Previous treatment: L THR 6 YEARS AGO. NO INJECTIONS. SOME PHYSICAL THERAPY OVER THE YEARS FOR BACK THAT HELPED AT THE TIME BUT IT CAME BACK. SOME CHIROPRACTIC FOR BACK BUT DID NOT HELP AND REPORTS CHIROPRACTOR TOLD HER SHE COULD NOT HELP HER. ALSO REPORTS HAVING SOME MASSAGE THERAPY A COUPLE YEARS AGO WITH BENEFIT. Treatment this episode: GABAPENTIN AND TYLONOL. Methotrexate. Coughing/sneezing/straining: Negative for increased pain. Gait: TIME AND DISTANCE LIMITED BY BACK AND LEG PAIN. NO FALLS. NO AD'S. Bowel or Bladder Dysfunction: NO Accidents: NO Unexplained weight loss: NO Imaging: PATIENT REPORTS RECENT LOW BACK X-RAYS BUT NO RECENT MRI. PMH/Recent major surgery: RA, OA. BEN WRIST, FOOT AND KNEE PAIN THAT PATIENT RELATES TO ARTHRITIS. Objective Objective: THIS PATIENT AMBULATES INDEP'LY INTO PT WITHOUT ANY AD'S WITH SLOW CADANCE, SHORT BEN STRIDE LENGTH, TENTATIVE STEPPING, AND A MILD LIMP ON THE R LE. SHE HAS MILD DECREASED LORDOSIS AND NO RELEVANT LATERAL SHIFT. ACTIVE CORRECTION OF POSTURE HAS NO EFFECT ON SX'S IN STANDING AND FEELS BETTER IN SITTING. Sensory deficit: EBN LE LIGHT TOUCH SENSATION GROSSLY INTACT AND SYMMETRICAL ROM deficit: BEN HIP ROTATION TIGHTNESS R > L. BEN HS AND CALF TIGHTNESS. Motor deficit: R HIP 4-/5, KNEE 4-/5, ANKLE 5/5. L HIP 4/5, KNEE 4/5, ANKLE 5/5 Reflexes: UNABLE TO ELICIT BEN LE DTR'S. Dural Signs: POSITIVE R LE Lumbar mvmt loss: flex - NIL ext - YELENA R SG - MOD L SG - MOD PATIENT C/O INCREASED LOW BACK PAIN WITH LUMBAR ROM TESTING INTO EXTENSION AND BEN SG TESTING. Core strength: FAIR Palpation: PATIENT DENIES ACUTE TENDERNESS WITH PALPATION OF LOWER THORACIC, LUMBAR, SACRAL, AND BEN HIP REGIONS TREATMENT: NEUROMUSCULAR REEDUCATION - RETRAINING OF MVMT AND POSTURE FOR SITTING, LYING AND STANDING ACTIVITIES. Balance/Special Test Scores Oswestry Low Back Score: 16 TUG Test Time Seconds: 20.56 30 Second Chair Rise Test Seconds: 6 Goals Goal 1:: DECREASE C/O BACK PAIN BY AT LEAST 25% TO EASE ADL Goal Time Frame: 4-6 Weeks Goal 2:: PATIENT WILL COMPLETE 6 STANDS IN 30 SECS TO DEMONSTRATE IMPROVED FUNCTIONAL STRENGTH Goal Time Frame: 4-6 Weeks Goal 3:: PATIENT WILL COMPLETE TUG IN < 30 SECS TO DEMONSTRATE IMPROVED GAIT STABILITY Goal Time Frame: 4-6 Weeks Goal 4:: PATIENT WILL BE INDEP WITH A HEP FOR CONTINUED IMPROVEMENT ONCE FORMAL PHYSICAL THERAPY CONCLUDES. Goal Time Frame: 4-6 Weeks Rehabilitation Potential Rehabilitation Potential: Good Anticipated Interventions Patient/Client Instruction: Educate patient on: Condition, Plan of Care and Risk Factors For the Purpose of:: To improve self management Therapeutic Exercise to Include: Strength training, Body mechanics, Postural training, Flexibilty training, Neuromotor development and Dynamic Lumbar Stabilization For the Purpose of:: To decrease pain, To increase ROM, To improve muscle performance and motor function, To increase tolerance to activity/condition/position, To improve ability of physical actions for home/community/work/leisure and To increase flexibility/ROM Text: Thank you for the opportunity to evaluate your patient. For Medicare and Medicare HMO plans, please review the plan of care and approve it. It will need to be FAXED BACK to us at [phone] for Medicare purposes. For Medicare only, by signing this I certify the plan of care. Please let me know if there are questions or concerns regarding this plan of care. Physician Signature: Date:
--- NOTE | 2023-05-04 13:46 | HP.PTREVAL_ITS ---
Re-Evaluation Intro: Dr. Nery Vasquez MD, It has been my pleasure to treat CHUY GARG over the last 10 visits for LUMBAR SPINAL STENOSIS AND SPONDYLOSIS. Please see the progress note below for an update on the physical therapy plan of care! Subjective Subjective: I CAN GO UP AND DOWN STEPS EASIER. I CAN DO YOGA BETTER AND I AM IMPROVING WITH MY EXERCISES IN THE POOL. I CAN DO MORE SINCE I HAVE BEEN IN THE WATER. PATIENT REPORTS SHE CAN DO THINGS AT HOME AT A BETTER PACE NOW THAN SHE COULD BEFORE SHE STARTED THERAPY BUT SHE IS NOT BACK TO NORMAL. SHE REPORTS SHE IS STILL LIMPING A LONG AND IT IS DIFFICULT TO GET THOUGH THE GROCERY STORE BECAUSE OF THE PAIN. SHE REPORTS THAT RECENT DEC 2022 SHE WAS GETTING AROUND GOOD AND IT WOULD BE A BIG IMPROVMENT TO BE ABLE TO GO BACK TO THAT. SHE STATES SHE WANTS TO CONTINUE AQUATIC THERAPY TO BUILD ON HER PROGRESS AND SEE IF SHE CAN GET BACK TO WHERE SHE WAS BEFORE THIS FLARED UP. PATIENT REPORTS SHE IS CONCERNED ABOUT HER R HIP AND PLANS TO ASK DR. MCKEON FOR A HIP X-RAY. Objective Objective/Function: PATIENT WAS SEEN TODAY FOR RE-ASSESSMENT OF PROGRESS TOWARD THE SET PT GOALS AND THE NEED FOR FURTHER PHYSICAL THERAPY VS READINESS FOR DISCHARGE. THIS PATIENT IS MAKING SLOW PROGRESS WITH PT AND IS A GOOD CANDIDATE TO CONTINUE BASED ON PROGRESS MADE AND ROOM FOR FURHTER IMPROVEMENT. SHE CONTINUES TO HAVE R HIP PAIN AND WEAKNESS LIMITING HER PROGRESS AND FUNCTION. UPON EXAM TODAY: Motor deficit: R HIP 4-/5, KNEE 4/5, ANKLE 5/5. L HIP 4/5, KNEE 5/5, ANKLE 5/5. PATIENT C/O R HIP PAIN WITH R HIP TESTING ALL PLANES. Reflexes: UNABLE TO ELICIT BEN LE DTR'S. Dural Signs: POSITIVE R LE Lumbar mvmt loss: flex - NIL ext - YELENA R SG - MOD L SG - MOD PATIENT C/O INCREASED LOW BACK PAIN WITH LUMBAR ROM TESTING INTO EXTENSION ONLY TODAY. Core strength: FAIR Plan Plan Plan: Continue 2x's a wk x 5 wks with Aquatic Therapy for Back and LE pain relief. Neutral Spine Core Stability Exercises and Ben LE Hip Flexor, Hamstring and Calf Stretching to help reduce stress to the Lumbar Spine with all Daily Activities. Ben LE Strengthening. Ins truction in Proper Posture Control, Body Mechanics, and Appropriate Activity Modifications. HEP Instruction. Balance/Gait/Functional tests Balance/Special Test Scores Oswestry Low Back Score: 16 TUG Test Time Seconds: 19.25 Tug Test: <20 sec.=mostly independent 30 Second Chair Rise Test Seconds: 6 Goals Goals Goal 1:: DECREASE C/O BACK PAIN BY AT LEAST 25% TO EASE ADL Goal Time Frame: 4-6 Weeks Goal Progress: Progressing Goal 2:: PATIENT WILL COMPLETE 6 STANDS IN 30 SECS TO DEMONSTRATE IMPROVED FUNCTIONAL STRENGTH Goal Time Frame: 4-6 Weeks Goal Progress: Goal Met Goal 3:: PATIENT WILL COMPLETE TUG IN < 30 SECS TO DEMONSTRATE IMPROVED GAIT STABILITY Goal Time Frame: 4-6 Weeks Goal Progress: Goal Met Goal 4:: PATIENT WILL BE INDEP WITH A HEP FOR CONTINUED IMPROVEMENT ONCE FORMAL PHYSICAL THERAPY CONCLUDES. Goal Time Frame: 4-6 Weeks Goal Progress: Progressing Goal 5:: NEW GOAL PATIENT WILL COMPLETE 8 STANDS IN 30 SECS TO DEMONSTRATE IMPROVED FUNCTIONAL LE STRENGTH WITH HANDS ON KNEES Goal Time Frame: 4-6 Weeks Goal 6:: NEW GOAL PATIENT WILL COMPLETE TUG IN <15 SEC WITHOUT AD TO DEMONSTRATE IMPROVED GAIT STABILITY. Goal Time Frame: 4-6 Weeks Anticipated Interventions Anticipated Interventions Patient/Client Instruction: Educate patient on: Condition, Plan of Care and Risk Factors For the Purpose of:: To improve self management Therapeutic Exercise to Include: Strength training, Body mechanics, Postural training, Flexibilty training, Neuromotor development and Dynamic Lumbar Stabilization For the Purpose of:: To decrease pain, To increase ROM, To improve muscle performance and motor function, To increase tolerance to activity/condition/position, To improve ability of physical actions for home/community/work/leisure and To increase flexibility/ROM Re-Evaluation Ending Re-evaluation ending: Please do not hesitate to contact me at [phone] by phone or if you have questions or concerns regarding this new plan of care! Sincerely, Cheyanne Martinez, PT, Cert MDT
--- NOTE | 2023-06-15 12:26 | HP.PTREVAL_ITS ---
Re-Evaluation Intro: Dr. Nery Vasquez MD, It has been my pleasure to treat CHUY GARG over the last 19 visits for LUMBAR SPINAL STENOSIS AND SPONDYLOSIS. Please see the progress note below for an update on the physical therapy plan of care! Subjective Subjective: PATIENT REPORTS SHE CAN PUT PRESSURE ON HER R LE WITHOUT HAVING PAIN LIKE SHE DID BEFORE AND SHE CAN GO UP THE STEPS STEP OVER STEP NOW USING 2 HR'S. SHE STATES PHYSICAL THERAPY HAS HELPED AND THE LAST SHOTS DR. BUTLER GAVE HER HELPED. SHE DOES STILL GET PAIN IN THE BACK OF HER R HIP WITH WEIGHT BEARING BUT NOT BAD BEFORE. FOLLOW UP WITH DR. BUTLER PENDING NEXT WEEK PER PATIENT. Objective Objective/Function: PATIENT WAS SEEN TODAY FOR RE-ASSESSMENT OF PROGRESS TOWARD THE SET PT GOALS AND THE NEED FOR FURTHER PHYSICAL THERAPY VS READINESS FOR DISCHARGE. THIS PATIENT IS BETTER PROGRESS NOW WITH PT AND IS A GOOD CANDIDATE TO CONTINUE PT FOR PRE AND TO HELP HER SUCCESSFULLY TRANSITION TO AN [facility] EX PROGRAM AT THE FACILITY OF HER CHOICE. UPON EXAM TODAY: Motor deficit: R HIP 4/5, KNEE 5/5, ANKLE 5/5. L HIP 5/5, KNEE 5/5, ANKLE 5/5. PATIENT DENIES PAIN WITH BEN LE STRENGTH TESTING. Dural Signs: POSITIVE R LE Lumbar mvmt loss: flex - NIL ext - MOD R SG - MOD L SG - MOD PATIENT DENIES INCREASED PAIN WITH LUMBAR ROM TESTING ALL PLANES TODAY BUT REPORTS R LB/POST HIP SORENESS WITH BEN SG TESTING. Core strength: FAIR Plan Plan Plan: Continue 1x's a wk x 5 wks with Aquatic Therapy for Back and LE pain relief. Neutral Spine Core Stability Exercises and Ben LE Hip Flexor, Hamstring and Calf Stretching to help reduce stress to the Lumbar Spine with all Daily Activities. Ben LE Strengthening. Instruction in Proper Posture Control, Body Mechanics, and Appropriate Activity Modifications. HEP Instruction. Balance/Gait/Functional tests Balance/Special Test Scores Oswestry Low Back Score: 8 TUG Test Time Seconds: 16.91 Tug Test: <20 sec.=mostly independent 30 Second Chair Rise Test Seconds: 8 Goals Goals Goal 1:: DECREASE C/O BACK PAIN BY AT LEAST 25% TO EASE ADL Goal Time Frame: 4-6 Weeks Goal Progress: Goal Met Goal 2:: PATIENT WILL COMPLETE 6 STANDS IN 30 SECS TO DEMONSTRATE IMPROVED FUNCTIONAL STRENGTH Goal Time Frame: 4-6 Weeks Goal Progress: Goal Met Goal 3:: PATIENT WILL COMPLETE TUG IN < 30 SECS TO DEMONSTRATE IMPROVED GAIT STABILITY Goal Time Frame: 4-6 Weeks Goal Progress: Goal Met Goal 4:: PATIENT WILL BE INDEP WITH A HEP FOR CONTINUED IMPROVEMENT ONCE FORMAL PHYSICAL THERAPY CONCLUDES. Goal Time Frame: 4-6 Weeks Goal Progress: Progressing Goal 5:: NEW GOAL PATIENT WILL COMPLETE 8 STANDS IN 30 SECS TO DEMONSTRATE IMPROVED FUNCTIONAL LE STRENGTH WITH HANDS ON KNEES Goal Time Frame: 4-6 Weeks Goal Progress: Goal Met Goal 6:: NEW GOAL PATIENT WILL COMPLETE TUG IN <15 SEC WITHOUT AD TO DEMONSTRATE IMPROVED GAIT STABILITY. Goal Time Frame: 4-6 Weeks Goal Progress: Progressing Anticipated Interventions Anticipated Interventions Patient/Client Instruction: Educate patient on: Condition, Plan of Care and Risk Factors For the Purpose of:: To improve self management Therapeutic Exercise to Include: Strength training, Body mechanics, Postural training, Flexibilty training, Neuromotor development and Dynamic Lumbar Stabilization For the Purpose of:: To decrease pain, To increase ROM, To improve muscle performance and motor function, To increase tolerance to activity/condition/position, To improve ability of physical actions for home/community/work/leisure and To increase flexibility/ROM Re-Evaluation Ending Re-evaluation ending: Please do not hesitate to contact me at [phone] by phone or if you have questions or concerns regarding this new plan of care! Sincerely, Cheyanne Martinez, PT, Cert MDT
--- NOTE | 2023-08-10 08:33 | HP.PTDCSUM ---
Discharge Summary D/C summary: It has been my pleasure to treat CHUY GARG referred by Dr. Nery Vasquez MD, with the diagnosis of LUMBAR SPINAL STENOSIS AND SPONDYLOSIS for a total of 22 visit(s). Discharge Date: 08/10/23 Please see the following information for a summary of their discharge status. Subjective Subjective: PATIENT REPORTS SHE HAS BEEN REALLY SICK. STARTED 3 new medications yesterday. GOING BACK AND FOURTH BETWEEN CONSTIPATION AND diarrheas. SHE REPORTS SHE HAD A UTI AND NOW A VAGINAL INFECTION FROM AN ABRASION FROM HAVING A PESSARY REMOVED. PATIENT REPORTS PAIN IN HER BOWELS LAST NIGHT SO SHE IS GOING TO CALL HER PCP TODAY THAT PRESCRIBED THE MEDICINE. HAS BEEN REFERRED TO GI SPECIALIST. ALSO AWAITING BLOODWORK RESULTS. STATES SHE CAME TO PT TODAY TO JUST PUT CLOSURE TO HER EPISODE OF CARE WITH US AND SEE WHERE SHE GOES FROM HERE. SHE STATES THE THEREAPY HAS BEEN HELPFUL AND SHE IS GLAD DR. MCKEON ORDERED IT. SHE ALSO THINKS THE SHOTS DR. MCKEON GAVE HER HELPED. SHE STATES SHE CAN GO UP AND DOWN STEPS NOW AND THE PAIN THAT DR. MCKEON SENT HER FOR IN HER BACK AND LEG IS 95% BETTER. SHE REPORTS SHE DOESN'T REALLY HAVE ANY PAIN RIGHT NOW BUT HER REAR END IS SORE (UN-RELATED TO PT DX). WANTS TO GO AHEAD WITH EXIT TESTING TODAY. Pain bilat LB: Pain Intensity (Out of 10): 0 R LE: Pain Intensity (Out of 10): 0 Overall Improvement % Improvement: 95 Objective Objective/Function: UPON EXAM TODAY: THIS PATIENT AMBULATES INDEP'LY INTO PT WITHOUT ANY AD'S OR GROSS DEVIATIONS NOTED. SHE IS ABLE TO TRANSFER INDEP'LY FROM SIT TO STAND WITHOUT UE ASSIST. Motor deficit: R HIP 4/5, KNEE 5/5, ANKLE 5/5. L HIP 5/5, KNEE 5/5, ANKLE 5/5. PATIENT DENIES PAIN WITH BEN LE STRENGTH TESTING. Dural Signs: POSITIVE R LE Lumbar mvmt loss: flex - NIL ext - MOD R SG - MOD L SG - MOD PATIENT DENIES INCREASED PAIN WITH LUMBAR ROM TESTING ALL PLANES TODAY. Core strength: FAIR Goals Goal 1:: DECREASE C/O BACK PAIN BY AT LEAST 25% TO EASE ADL Goal Progress: Goal Met Goal 2:: PATIENT WILL COMPLETE 6 STANDS IN 30 SECS TO DEMONSTRATE IMPROVED FUNCTIONAL STRENGTH Goal Progress: Goal Met Goal 3:: PATIENT WILL COMPLETE TUG IN < 30 SECS TO DEMONSTRATE IMPROVED GAIT STABILITY Goal Progress: Goal Met Goal 4:: PATIENT WILL BE INDEP WITH A HEP FOR CONTINUED IMPROVEMENT ONCE FORMAL PHYSICAL THERAPY CONCLUDES. Goal Progress: Goal Met Goal 5:: NEW GOAL PATIENT WILL COMPLETE 8 STANDS IN 30 SECS TO DEMONSTRATE IMPROVED FUNCTIONAL LE STRENGTH WITH HANDS ON KNEES Goal Progress: Goal Met Goal 6:: NEW GOAL PATIENT WILL COMPLETE TUG IN <15 SEC WITHOUT AD TO DEMONSTRATE IMPROVED GAIT STABILITY. Goal Progress: Goal Met Plan Plan: D/C. PATIENT IS DEALING WITH HEALTH ISSUES RIGHT NOW THAT PREVENT HER FROM DOING WATER THERAPY BUT SHE IS DOING HER HEP AND SOME YOGA ABLE. D/C Information d/c sentence: If there are questions or concerns regarding this patient's physical therapy, please feel free to call me at [phone]. Thank you for the referral of this patient. Sincerely, Cheyanne Martinez, PT, Cert MDT Balance/Gait/Functional tests Balance/Special Test Scores Oswestry Low Back Score: 8 TUG Test Time Seconds: 9.78 Tug Test: <20 sec.=mostly independent 30 Second Chair Rise Test Seconds: 8 Improvement % Improvement: 95
== END 2023-08-10 09:21 | disposition home or self-care (01) ==
LOC: PT 08:00
PROVIDERS: PCP Student in an Organized Health Care Education/Training Program; Referring Provider Anesthesiology Pain Medicine; Visit Provider Anesthesiology Pain Medicine
DX: M48.061 Spinal stenosis, lumbar region without neurogenic claudication (principal); M47.816 Spondylosis without myelopathy or radiculopathy, lumbar region
CPT/HCPCS: 97110; 97112; 97113; 97162; 97164; 97530

== ENCOUNTER → 2023-10-17 | Outpatient (CLI) | payer MEDICARE, OTHER, SELFPAY ==
[2023-10-17 12:21] LABS: Absolute Lymphocyte Count 2.61 X10^3/uL (0.83-4.51); Absolute Neutrophil Count 2.3 X10^3/uL (2.0-7.7); Basophil# 0.05 X10^3/uL; Basophil% 0.9 % (0-1); Eosinophil# 0.09 X10^3/uL; Eosinophils% 1.6 % (0-5); Hematocrit 39.7 % (37-47); Hemoglobin 12.8 g/dL (12.0-15.0); Lymphocyte # 2.61 X10^3/ul (0.83-4.51); Lymphocyte % 47.2 % (19-41); Mean Corp Hgb Conc 32.2 g/dL (32-36); Mean Corpuscular Hgb 32.1 pg (27.0-32.0); Mean Corpuscular Volume 99.5 fL (81-99); Mean Platelet Vol. 10.9 fl (6.2-12.0); Monocyte# 0.45 X10^3/uL; Monocyte% 8.1 % (0-10); NRBC Flagged by Analyzer 0 % (0-5); Neutrophil # 2.32 X10^3/uL (2.7-7.7); Platelet Count 214 K/mm3 (150-450); RBC Distribution Width CV 12.7 % (11.6-14.6); RBC Distribution Width SD 45.5 fl (35.1-43.9); Red Blood Count 3.99 M/mm3 (4.2-5.4); White Blood Count 5.5 K/mm3 (4.4-11.0)
[2023-10-17 12:43] LABS: ALB/GLOB Ratio 0.9 RATIO (0.9-2.4); AST(SGOT) 25 U/L (15-37); Alanine Aminotransfer ALT/SGPT 30 U/L (13-56); Albumin, Serum 3.5 g/dL (3.2-5.0); Alkaline Phosphatase 87 U/L (45-117); Anion Gap 6 (5-15); BUN 15 mg/dL (7-18); BUN/Creat Ratio 15.6 RATIO (10-20); Calcium,Total 9.5 mg/dL (8.5-10.1); Chloride 103 mmol/L (98-107); Creatinine, Serum 0.96 mg/dL (0.55-1.02); EST Glomerular Filtration Rate 59 mL/min (>60); Est Glom Filt Rate - Afr Amer 71 mL/min (>60); Globulin 3.8 g/dL (2.2-4.2); Glucose 118 mg/dL (74-106); Potassium 4.2 mmol/L (3.5-5.1); Protein, Total 7.3 g/dL (6.4-8.2); Sodium Level 138 mmol/L (136-145)
== END | disposition home or self-care (01) ==
PROVIDERS: PCP Student in an Organized Health Care Education/Training Program; Referring Provider Internal Medicine Rheumatology; Visit Provider Internal Medicine Rheumatology
DX: M06.4 Inflammatory polyarthropathy (principal); M79.7 Fibromyalgia; Z79.899 Other long term (current) drug therapy
CPT/HCPCS: 36415; 80053; 85025

== ENCOUNTER 2024-01-07 07:02 | Day surgery (SDC) | payer MEDICARE, OTHER, SELFPAY ==
[2024-01-07] VITALS (8 sets, daily range): BP systolic 100–125; BP diastolic 53–72; PULSE 64–75; RESP 12–18; TEMP 36–36.6; O2SAT 94–99; BMI 24.3
--- NOTE | 2024-01-07 07:15 | HP.PCM_ITS ---
History and Physical Date of Admission: 01/07/24 CHUY GARG, is a 83 F who presents to the office today for establishment with [facility]. SHe has a PMHx of spinal stenosis, spondylolisthesis, rheumatoid arthritis and vaginal pessary present. She is here today for evaluation of rectal pain with constipation. Her pain is associated with deification and is sharp in nature. She only gets this pain when she has a BM and not any other times. She did have anoscopy performed with hemorrhoidal banding at some point in time at a different facility. She has constipation with one bowel movement per day that does not feel complete. Her stools are hard and small. She has been taking benefiber for a few days now and stool softeners. She tried miralax once and it gave her diarrhea. She denies abdominal pain, n/v, heartburn, diarrhea or melena. ROS Const Constitutional: No fatigue, fever(s) or weight change ENT ENT: No difficulty swallowing Gastro GI: Positive for bloating, change in bowel habits, constipation and excessive flatus; No abdominal pain, belching, change in stool character, coffee ground emesis, cramping, diarrhea, heartburn, difficulty swallowing, feeling full early, incontinent of stools, Vomiting blood/hematemesis, Blood in stool, loose stools, Black,tarry stools, nausea/dyspepsia, pain with swallowing, vomiting or other Musc Musculoskeletal: Positive for joint pain, back pain, Arthritis and leg pain at night Skin Skin: Positive for dry skin and itchy eyes; No yellowing of the eye Psych Psychiatric: No anxiety and No depression Endo Endocrine: No fatigue or weight change Aller/Imm Allergy/Immunologic: Positive for itchy eyes Charles/Lymp Hematologic/Lymphatic: No easy bleeding or easy bruising Exam Const General: cooperative and comfortable Nutritional Appearance: average body habitus and well nourished [facility] Head: normal to inspection Ears: hearing grossly normal bilaterally Nose: external nose normal Face and sinus: normal facial exam Eyes General: appearance normal, both eyes and all related structures Neck Neck: normal visual inspection Chest Chest palpation & inspection: normal inspection of the chest Resp Effort & Inspection: normal respiratory effort GI Inspection: normal to inspection Palpation: no hepatosplenomegaly Rectal Exam: visual inspection normal and normal sphincter tone Other: skin tag Skin General: no rashes or lesions noted Neuro General: patient alert Extrem General: normal to inspection Psych Affect: normal affect Assessment and Plan Assessment and Plan (1) Rectal pain: Status: Acute Plan: Pt is an 83 yo female here today for evaluation of rectal pain. She has had hemorrhoids in the past and underwent banding procedure. Her last colonoscopy was about 1 year ago with no abnormalities. She does not wish to have a colonoscopy at this time but would do a sigmoidoscopy. On rectal exam no internal hemorrhoids were appreciated. She did have an external skin tag. No fissure seen. She will continue taking the fiber and stool softener. She will be scheduled for sigmoidoscopy. Differential diagnosis includes fissure or hemorrhoids. -Sigmoidoscopy with possible banding -Continue benefiber and stool softeners -f/u in 3 months (2) Constipation: Status: Acute Orders: Orders IBD Expanded Profile Today K62.89 - Other specified diseases of anus and rectum JAYLYN + Protein Elect, Serum Today K62.89 - Other specified diseases of anus and rectum Immunoglobulins G/A/M/E Today K62.89 - Other specified diseases of anus and rectum
--- NOTE | 2024-01-07 07:44 | PCM.PRE.AN2 ---
ASA Classification* ASA Classification ASA Classification: 2 Assessment & Plan Anesthesia* Anesthesia Assessment Anesthesia Assessment: Discussed sedation and/or anesthesia options, risks, benefits, and alternatives with patient/parents/legal guardian/POA. Questions invited. The patient/parents/legal guardian/POA seems to understand and agrees to proceed with anesthesia plan. Reviewed the physical assessment, medical history, allergy history and patient home medications list prior to surgery/procedure/anesthetic and documented any changes. Performed airway and anesthesia risk assessments. Anesthesia Type Anesthesia Type: MAC Anesthesia Focused Assessment* Temperature: 96.8 F Pulse Rate: 71 Blood Pressure: 125/57 Respiratory Rate: 17 Pulse Ox: 98 Airway Assessment Mouth opens: >3 cm Mallampati Score: II Focused Labs Anesthesia Preop lab: CBC WBC 5.5 K/mm3 (4.4-11.0) 10/17/23 10:03 RBC 3.99 M/mm3 (4.2-5.4) L 10/17/23 10:03 Hgb 12.8 g/dL (12.0-15.0) 10/17/23 10:03 Hct 39.7 % (37-47) 10/17/23 10:03 Plt Count 214 K/mm3 (150-450) 10/17/23 10:03 CHEMISTRY Potassium 4.2 mmol/L (3.5-5.1) 10/17/23 10:03 Sodium 138 mmol/L (136-145) 10/17/23 10:03 BUN 15 mg/dL (7-18) 10/17/23 10:03 Creatinine 0.96 mg/dL (0.55-1.02) 10/17/23 10:03 Glucose 118 mg/dL (74-106) H 10/17/23 10:03 COAG Pre-Assessment Diagnosis/Proposed Procedure Planned Operative Procedure(s): FLEXIBLE SIGMOIDOSCOPY Anesthesia History Anesthesia History - [employer]: Anesthesia History - [employer] Hx Hospitalization No 01/03/24 09:22 Any Problems With Anesthesia No 01/03/24 09:22 Cholinesterase deficiency No 01/03/24 09:22 You/Your Family Experience No 01/03/24 09:22 fever (hyperthermia) with Relationship Recent Exposure to Contagious No 01/07/24 07:31 Disease Does patient have nerve No 01/03/24 09:22 stimulator Patient instructed to have device shut off --Does patient have Pacemaker No 01/07/24 07:31 or ICD? When Was Last Pacemaker Check QUESTION #4 FULL TEXT: You/Your Family Experience fever (hyperthermia) with Anesthesia Last Oral Intake Last Oral intake: Last Oral Intake NPO since 00:00 01/07/24 07:31 Meds taken in AM with sips of No 01/07/24 07:31 water? Meds patient instructed to take am of surgery PONV PONV - [employer]: PONV - [employer] Female Yes 01/03/24 09:22 HX of Motion Sickness No 01/03/24 09:22 HX of N/V After Surgery No 01/03/24 09:22 Non-Smoker Yes 01/03/24 09:22 Duration of Surgery greater No 01/03/24 09:22 than 60 minutes Number of Risk Factors 2 01/03/24 09:22 PONV Score Moderate Risk 01/03/24 09:22 Height & Weight Height & Weight: Anesthesia: Height & Weight Height 5 ft 5 in 01/07/24 07:31 Weight: 66.3 kg 01/07/24 07:31 Body Mass Index (BMI) 24.3 01/07/24 07:31 Respiratory Assessment Respiratory Assessment - [employer]: Respiratory Tract Infection Hx - [employer] Hx Respiratory Tract Infection No 01/03/24 09:22 STOP Sleep Apnea STOP Sleep Apnea - [employer]: STOP Sleep Apnea - [employer] Hx Hypertension No 01/03/24 09:22 Hx Sleep Apnea No 01/03/24 09:22 CPAP BIPAP Do you snore loudly (louder No 01/03/24 09:22 than talking or can be heard Do you often feel tired/ No 01/03/24 09:22 fatigued/ sleepy during daytime? Has anyone observed you stop No 01/03/24 09:22 breathing during sleep? STOP Results Negative 01/03/24 09:22 QUESTION #5 FULL TEXT : Do you snore loudly (louder than talking or can be heard through closed doors)? 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 Specify any problems Hx of Preganancy in last 3 No 01/03/24 09:22 Months Nurse Filling Out Transfusion [email or web address] 01/03/24 09:22 & Questions: Date: 01/03/24 01/03/24 09:22 Time: 09:35 01/03/24 09:22 Patient unable to answer at this time (ie. confused, unrespo /Reproduction History /Reproductive History - [employer]: /Reproductive Hx- [employer] Hx Now Gestational Age (in weeks): EDC: Hx Hx Para Hx Section SAB PFSH Medical History Wears glasses Arthritis Non-smoker Constipation Home Medications ?Medication ?Instructions ?Recorded ?Last Taken ?Type acetaminophen 500 mg tablet 500 mg PO Q6H PRN pain 11/24/21 01/06/24 History (Tylenol Extra Strength) docusate sodium 100 mg capsule 100 mg PO BID 11/24/21 01/06/24 History folic acid 1 mg tablet 2 mg PO DAILY 11/24/21 01/06/24 History methotrexate sodium 2.5 mg tablet 20 mg PO MO 11/24/21 12/31/23 History gabapentin 100 mg capsule 100 mg PO QHS 02/28/23 01/06/24 History calcium carbonate (Calcium 600) 1,200 mg PO QDAY 01/03/24 01/06/24 History Allergy/AdvReac Type Severity Reaction Status Date / Time hydroxychloroquine Allergy Severe Rash Verified 01/07/24 07:30 tramadol AdvReac Nausea Verified 01/07/24 07:30 Surgical History History of total left hip arthroplasty Social History Smoking Status: Never smoker alcohol intake: never Review of Systems (Anesthesia) ROS Narrative System reviewed and no additional complaints, except as documented.
--- NOTE | 2024-01-07 08:45 | OP.FLEXSIG_ITS ---
Patient Name: Jesica Henning Procedure Date: 01/07/2024 8:19 AM Date of : 1940 Age: 83 Procedure: Flexible Sigmoidoscopy Indications: Abdominal distress, Suspected internal hemorrhoids Providers: Sanford Portillo DO Referring MD: Zain Charles Do Medicines: Monitored Anesthesia Care Patient Profile: This is an 83 year old female. Refer to note in patient chart for documentation of history and physical. Last Colonoscopy: none. The patient's first colonoscopy is today. Complications: No immediate complications. Procedure: Pre-Anesthesia Assessment: - Prior to the procedure, a History and Physical was performed, and patient medications and allergies were reviewed. The patient is competent. The risks and benefits of the procedure and the sedation options and risks were discussed with the patient. All questions were answered and informed consent was obtained. Patient identification and proposed procedure were verified by the physician in the pre-procedure area. Mental Status Examination: alert and oriented. Airway Examination: normal oropharyngeal airway and neck mobility. Respiratory Examination: clear to auscultation. CV Examination: normal. Prophylactic Antibiotics: The patient does not require prophylactic antibiotics. Prior Anticoagulants: The patient has taken no anticoagulant or antiplatelet agents except for NSAID medication. ASA Grade Assessment: III - A patient with severe systemic disease. After reviewing the risks and benefits, the patient was deemed in satisfactory condition to undergo the procedure. The anesthesia plan was to use monitored anesthesia care (MAC). Immediately prior to administration of medications, the patient was re-assessed for adequacy to receive sedatives. The heart rate, respiratory rate, oxygen saturations, blood pressure, adequacy of pulmonary ventilation, and response to care were monitored throughout the procedure. The physical status of the patient was re-assessed after the procedure. After obtaining informed consent, the endoscope was passed under direct vision. Throughout the procedure, the patient's blood pressure, pulse, and oxygen saturations were monitored continuously. The Endoscope was introduced through the anus and advanced to the rectosigmoid junction. The flexible sigmoidoscopy was accomplished without difficulty. The patient tolerated the procedure well. No bowel preparation was given prior to the procedure. The quality of visualization was adequate. Scope In: 8:36:07 AM Scope Out: 8:38:13 AM Total Procedure Duration Time 0 hours 2 minutes 6 seconds Findings: A benign-appearing, intrinsic mild stenosis was found at the anus and was traversed. Impression: - Stricture at the anus. - No specimens collected. Recommendation: - Use Citrucel one teaspoon PO daily. - Colace 100 mg daily - Hydrocortisone suppositories twice a day x 21 days Procedure Code(s): --- Professional --- 40608, 52, Sigmoidoscopy, flexible; diagnostic, including collection of specimen(s) by brushing or washing, when performed (separate procedure) CPT copyright 2021 [employer]. All rights reserved. The codes documented in this report are preliminary and upon reporting lead review may be revised to meet current compliance requirements. Sanford Portillo DO 01/07/2024 8:45:20 AM This report has been signed electronically. Number of Addenda: 0 Note Initiated On: 01/07/2024 8:19 AM
--- NOTE | 2024-01-07 08:46 | OP.CCLET_ITS ---
01/07/2024 Zain Charles Do Re : Flexible Sigmoidoscopy procedure for Jesica Henning Dear Melvin This procedure was performed on Sunday, January 07, 2024. My impressions and recommendations are as follows: Impressions : - Stricture at the anus. - No specimens collected. Recommendations : - Use Citrucel one teaspoon PO daily. - Colace 100 mg daily - Hydrocortisone suppositories twice a day x 21 days My findings are described in the full procedure note, which is enclosed. If I can be of further assistance, please feel free to contact me at . Sincerely, Sanford Portillo, 01/07/2024 8:45:20 AM This report has been signed electronically.
--- NOTE | 2024-01-07 08:48 | PCM.POST.ANE ---
Anesthesia: Postop Eval I Current Vital Signs Temperature: 98 F Pulse Rate: 64 Blood Pressure: 109/64 Respiratory Rate: 16 Pulse Ox: 99 Oxygen Delivery Method: Room Air Assessment Airway patent: Yes Spontaneous unlabored respirations: Yes Mental status: Awake nausea: No Vomiting: No Anesthesia Complication: No Fluid Hydration Crystalloid volume administer (ml): 30 Total IV fluid infused: 30 Progress Note Anesthesia document: Postop Eval 1 completed: Yes
--- NOTE | 2024-01-07 11:46 | PCM.POSTANE2 ---
Anesthesia Postop Eval I Sum Postop Eval Completion status Anesthesia document: Postop Eval 1 completed: Yes Anesthesia Postop Eval I Summary Anesthesia Postop Eval I Summary: Anesthesia Postop Eval I: Assessment Summary Airway patent Yes 01/07/24 08:48 [email or web address] Spontaneous unlabored Yes 01/07/24 08:48 [email or web address] respirations Mental status Awake 01/07/24 08:48 [email or web address] nausea No 01/07/24 08:48 [email or web address] Vomiting No 01/07/24 08:48 [email or web address] Anesthesia Postop Eval I: Fluid Summary Crystalloid volume administer 30 01/07/24 08:48 [email or web address] (ml) Colloids volume administered ( ml) Blood Product volume administered (ml) Total IV fluid infused 30 01/07/24 08:48 [email or web address] Anesthesia Postop Eval I: Summary Notes Anesthesia Complication No 01/07/24 08:48 [email or web address] Anesthesia Complication Comment: Post-operative progress note Anesthesia: Postop Eval II Evaluation Mental status: Awake and Calm Pain Level: 0 nausea: No Vomiting: No Complications Anesthesia Complication: No
== END 2024-01-07 10:02 | disposition home or self-care (01) ==
LOC: EN 07:02 → AC 07:04
PROVIDERS: PCP Student in an Organized Health Care Education/Training Program; Referring Provider Student in an Organized Health Care Education/Training Program; Visit Provider Internal Medicine Gastroenterology
PROC: 0DJD8ZZ Inspection of Lower Intestinal Tract, Via Natural or Artificial Opening Endoscopic (ICD-10-PCS; CPT 45330; principal; 2024-01-07 07:55)
DX: K62.4 Stenosis of anus and rectum (principal); M06.9 Rheumatoid arthritis, unspecified; K62.89 Other specified diseases of anus and rectum; K59.00 Constipation, unspecified
CPT/HCPCS: 45330; A4216; J2405

== ENCOUNTER → 2024-01-14 | Outpatient (CLI) | payer MEDICARE, OTHER, SELFPAY ==
[2024-01-14 12:49] LABS: Absolute Lymphocyte Count 3.53 X10^3/uL (0.83-4.51); Absolute Neutrophil Count 1.7 X10^3/uL (2.0-7.7); Basophil# 0.04 X10^3/uL; Basophil% 0.7 % (0-1); Eosinophil# 0.13 X10^3/uL; Eosinophils% 2.2 % (0-5); Hematocrit 39.3 % (37-47); Hemoglobin 12.5 g/dL (12.0-15.0); Lymphocyte # 3.53 X10^3/ul (0.83-4.51); Lymphocyte % 60.1 % (19-41); Mean Corp Hgb Conc 31.8 g/dL (32-36); Mean Corpuscular Hgb 31.6 pg (27.0-32.0); Mean Corpuscular Volume 99.5 fL (81-99); Mean Platelet Vol. 11.4 fl (6.2-12.0); Monocyte# 0.45 X10^3/uL; Monocyte% 7.7 % (0-10); NRBC Flagged by Analyzer 0 % (0-5); Neutrophil # 1.71 X10^3/uL (2.7-7.7); Neutrophil % 29.1 % (47-70); Platelet Count 203 K/mm3 (150-450); RBC Distribution Width CV 13.7 % (11.6-14.6); RBC Distribution Width SD 49.4 fl (35.1-43.9); Red Blood Count 3.95 M/mm3 (4.2-5.4); White Blood Count 5.9 K/mm3 (4.4-11.0)
[2024-01-14 12:55] LABS: AST(SGOT) 17 U/L (15-37); Alanine Aminotransfer ALT/SGPT 19 U/L (13-56); Albumin, Serum 3.6 g/dL (3.2-5.0); Alkaline Phosphatase 75 U/L (45-117); Anion Gap 5 (5-15); BUN 21 mg/dL (7-18); BUN/Creat Ratio 19.6 RATIO (10-20); Calcium,Total 9.2 mg/dL (8.5-10.1); Chloride 104 mmol/L (98-107); Creatinine, Serum 1.07 mg/dL (0.55-1.02); EST Glomerular Filtration Rate 52 mL/min (>60); Est Glom Filt Rate - Afr Amer 63 mL/min (>60); Globulin 3.5 g/dL (2.2-4.2); Glucose 127 mg/dL (74-106); Potassium 3.6 mmol/L (3.5-5.1); Protein, Total 7.1 g/dL (6.4-8.2); Sodium Level 137 mmol/L (136-145)
== END | disposition home or self-care (01) ==
PROVIDERS: PCP Student in an Organized Health Care Education/Training Program; Referring Provider Internal Medicine Rheumatology; Visit Provider Internal Medicine Rheumatology
DX: M06.4 Inflammatory polyarthropathy (principal); M79.7 Fibromyalgia; Z79.899 Other long term (current) drug therapy
CPT/HCPCS: 36415; 80053; 85025

== ENCOUNTER → 2024-04-11 | Outpatient (CLI) | payer MEDICARE, OTHER, SELFPAY ==
[2024-04-11 17:48] LABS: Absolute Lymphocyte Count 4.29 X10^3/uL (0.83-4.51); Absolute Neutrophil Count 2.1 X10^3/uL (2.0-7.7); Basophil# 0.06 X10^3/uL; Basophil% 0.8 % (0-1); Eosinophil# 0.18 X10^3/uL; Eosinophils% 2.5 % (0-5); Hematocrit 35.8 % (37-47); Hemoglobin 11.6 g/dL (12.0-15.0); Lymphocyte # 4.29 X10^3/ul (0.83-4.51); Lymphocyte % 59.2 % (19-41); Mean Corp Hgb Conc 32.4 g/dL (32-36); Mean Corpuscular Hgb 32.5 pg (27.0-32.0); Mean Corpuscular Volume 100.3 fL (81-99); Mean Platelet Vol. 10.3 fl (6.2-12.0); Monocyte# 0.58 X10^3/uL; NRBC Flagged by Analyzer 0 % (0-5); Neutrophil # 2.13 X10^3/uL (2.7-7.7); Neutrophil % 29.4 % (47-70); Platelet Count 272 K/mm3 (150-450); RBC Distribution Width SD 50.4 fl (35.1-43.9); Red Blood Count 3.57 M/mm3 (4.2-5.4); White Blood Count 7.3 K/mm3 (4.4-11.0)
[2024-04-11 18:22] LABS: ALB/GLOB Ratio 0.9 RATIO (0.9-2.4); AST(SGOT) 27 U/L (15-37); Alanine Aminotransfer ALT/SGPT 34 U/L (13-56); Albumin, Serum 3.5 g/dL (3.2-5.0); Alkaline Phosphatase 94 U/L (45-117); Anion Gap 7 (5-15); BUN 24 mg/dL (7-18); BUN/Creat Ratio 20.7 RATIO (10-20); Calcium,Total 9.4 mg/dL (8.5-10.1); Chloride 104 mmol/L (98-107); Creatinine, Serum 1.16 mg/dL (0.55-1.02); EST Glomerular Filtration Rate 47 mL/min (>60); Est Glom Filt Rate - Afr Amer 57 mL/min (>60); Globulin 3.9 g/dL (2.2-4.2); Glucose 100 mg/dL (74-106); Potassium 4.4 mmol/L (3.5-5.1); Protein, Total 7.4 g/dL (6.4-8.2); Sodium Level 136 mmol/L (136-145)
== END | disposition home or self-care (01) ==
LOC: MTLAB 16:33
PROVIDERS: PCP Student in an Organized Health Care Education/Training Program; Referring Provider Internal Medicine Rheumatology; Visit Provider Internal Medicine Rheumatology
DX: M06.4 Inflammatory polyarthropathy (principal); M79.7 Fibromyalgia; Z79.899 Other long term (current) drug therapy
CPT/HCPCS: 36415; 80053; 85025

== ENCOUNTER → 2024-05-13 | Outpatient (CLI) | payer MEDICARE, OTHER, SELFPAY ==
[2024-05-13 18:21] LABS: Absolute Lymphocyte Count 3.82 X10^3/uL (0.83-4.51); Absolute Neutrophil Count 2.7 X10^3/uL (2.0-7.7); Basophil# 0.06 X10^3/uL; Basophil% 0.8 % (0-1); Eosinophil# 0.06 X10^3/uL; Eosinophils% 0.8 % (0-5); Hematocrit 36.9 % (37-47); Hemoglobin 12.1 g/dL (12.0-15.0); Lymphocyte # 3.82 X10^3/ul (0.83-4.51); Lymphocyte % 52.2 % (19-41); Mean Corp Hgb Conc 32.8 g/dL (32-36); Mean Corpuscular Hgb 32.4 pg (27.0-32.0); Mean Corpuscular Volume 98.7 fL (81-99); Mean Platelet Vol. 10.9 fl (6.2-12.0); Monocyte# 0.63 X10^3/uL; Monocyte% 8.6 % (0-10); NRBC Flagged by Analyzer 0 % (0-5); Neutrophil # 2.74 X10^3/uL (2.7-7.7); Neutrophil % 37.5 % (47-70); Platelet Count 232 K/mm3 (150-450); RBC Distribution Width CV 13.5 % (11.6-14.6); RBC Distribution Width SD 48.7 fl (35.1-43.9); Red Blood Count 3.74 M/mm3 (4.2-5.4); White Blood Count 7.3 K/mm3 (4.4-11.0)
[2024-05-13 19:03] LABS: ALB/GLOB Ratio 1.5 RATIO (0.9-2.4); AST(SGOT) 23 U/L (<=31); Alanine Aminotransfer ALT/SGPT 16 U/L (<=34); Albumin, Serum 4.2 g/dL (3.4-4.8); Alkaline Phosphatase 82 U/L (35-104); Anion Gap 11 (5-15); BUN 21 mg/dL (4-19); BUN/Creat Ratio 21.4 RATIO (10-20); Calcium,Total 9.9 mg/dL (7.6-11.0); Chloride 102 mmol/L (98-108); Creatinine, Serum 0.97 mg/dL (0.70-1.20); EST Glomerular Filtration Rate 58 (>60); Globulin 2.9 g/dL (2.2-4.2); Glucose 114 mg/dL (70-99); Potassium 4.3 mmol/L (3.3-5.1); Protein, Total 7.1 g/dL (5.9-8.4); Sodium Level 137 mmol/L (133-145); Total Bilirubin 0.16 mg/dL (0.00-1.30)
== END | disposition home or self-care (01) ==
LOC: MTLAB 13:59
PROVIDERS: PCP Student in an Organized Health Care Education/Training Program; Referring Provider Internal Medicine Rheumatology; Visit Provider Internal Medicine Rheumatology
DX: M06.4 Inflammatory polyarthropathy (principal); M79.7 Fibromyalgia; Z79.899 Other long term (current) drug therapy
CPT/HCPCS: 36415; 80053; 85025

== ENCOUNTER → 2024-07-02 | Outpatient (CLI) | payer MEDICARE, OTHER, SELFPAY ==
[2024-07-02 13:00] LABS: Absolute Neutrophil Count 2.9 X10^3/uL (2.0-7.7); Basophil# 0.06 X10^3/uL; Basophil% 0.9 % (0-1); Eosinophil# 0.08 X10^3/uL; Eosinophils% 1.2 % (0-5); Hematocrit 38.7 % (37-47); Hemoglobin 12.8 g/dL (12.0-15.0); Lymphocyte % 46.5 % (19-41); Mean Corp Hgb Conc 33.1 g/dL (32-36); Mean Corpuscular Hgb 32.2 pg (27.0-32.0); Mean Corpuscular Volume 97.5 fL (81-99); Mean Platelet Vol. 10.6 fl (6.2-12.0); Monocyte# 0.55 X10^3/uL; Monocyte% 8.3 % (0-10); NRBC Flagged by Analyzer 0 % (0-5); Neutrophil # 2.85 X10^3/uL (2.7-7.7); Neutrophil % 42.8 % (47-70); Platelet Count 250 K/mm3 (150-450); RBC Distribution Width CV 13.2 % (11.6-14.6); RBC Distribution Width SD 46.5 fl (35.1-43.9); Red Blood Count 3.97 M/mm3 (4.2-5.4); White Blood Count 6.7 K/mm3 (4.4-11.0)
[2024-07-02 13:37] LABS: ALB/GLOB Ratio 1.4 RATIO (0.9-2.4); AST(SGOT) 24 U/L (<=31); Alanine Aminotransfer ALT/SGPT 18 U/L (<=34); Albumin, Serum 4.3 g/dL (3.4-4.8); Alkaline Phosphatase 91 U/L (35-104); Anion Gap 12 (5-15); BUN 19 mg/dL (4-19); BUN/Creat Ratio 19.5 RATIO (10-20); Calcium,Total 9.9 mg/dL (7.6-11.0); Carbon Dioxide 26.3 mmol/L (21.0-32.0); Chloride 103 mmol/L (98-108); Creatinine, Serum 0.98 mg/dL (0.70-1.20); EST Glomerular Filtration Rate 57 (>60); Glucose 95 mg/dL (70-99); Potassium 4.1 mmol/L (3.3-5.1); Protein, Total 7.2 g/dL (5.9-8.4); Sodium Level 141 mmol/L (133-145); Total Bilirubin 0.23 mg/dL (0.00-1.30)
== END | disposition home or self-care (01) ==
LOC: MTLAB 10:11
PROVIDERS: PCP Student in an Organized Health Care Education/Training Program; Referring Provider Internal Medicine Rheumatology; Visit Provider Internal Medicine Rheumatology
DX: M06.4 Inflammatory polyarthropathy (principal); M79.7 Fibromyalgia; Z79.899 Other long term (current) drug therapy
CPT/HCPCS: 36415; 80053; 85025

== ENCOUNTER → 2024-10-02 | Outpatient (CLI) | payer MEDICARE, OTHER, SELFPAY ==
--- NOTE | 2024-10-02 12:16 | MRI_ITS ---
PROCEDURE: SPINE LUMBAR (ROUTINE) 10/02/2024 REASON FOR EXAM: LUMBAR STENOSIS TECHNIQUE: SPINE LUMBAR (ROUTINE) COMPARISON: Lumbar spine MRI 12/07/2019. FINDINGS: Vertebrae: Preserved in height and signal. Alignment: Anterolisthesis L3 on L4 by 2 mm and L4 on L5 by 2 mm. Conus Medullaris: Unremarkable. T12-L1: Disc bulge. Mild inferior bilateral foramina stenosis. Facet joint arthropathy. Mild canal stenosis. L1-2: Disc bulge. Facet joint arthropathy with fluid effusion. Ligamentum flavum hypertrophy. Mild inferior bilateral foramina stenosis. Mild canal stenosis. L2-3: Disc desiccation. Disc bulge. Facet joint arthropathy. Ligamentum flavum hypertrophy. Severe canal stenosis. Mild bilateral foramina stenosis. L3-4: Disc desiccation. Disc bulge. Facet joint arthropathy. Ligamentum flavum hypertrophy. Severe canal stenosis. Severe left and moderate right foramina stenosis. L4-5: Uncovered disc bulge. Annular fissure. Facet joint arthropathy. Ligamentum flavum hypertrophy. Severe canal stenosis. Moderate bilateral foramina stenosis. L5-S1: No significant foraminal or canal stenosis. Sacrum: Unremarkable. MRI/Spine Lumbar (Routine) IMPRESSION: Similar degenerate changes of the lumbar spine compared to MRI 12/06/2021 predo minantly for severe canal stenosis at L2-L3 and L3-L4. Severe left foramina stenosis at L3-L4. Anterolisthesis L3 on L4 and L4-L5. Probable transitional vertebra. Reading Location: [id number]
== END | disposition home or self-care (01) ==
LOC: OPMRI 12:12
PROVIDERS: PCP Student in an Organized Health Care Education/Training Program; Referring Provider Anesthesiology; Visit Provider Anesthesiology
DX: M48.061 Spinal stenosis, lumbar region without neurogenic claudication (principal)
CPT/HCPCS: 72148

== ENCOUNTER → 2024-10-13 | Outpatient (CLI) | payer MEDICARE, OTHER, SELFPAY ==
[2024-10-13 15:47] LABS: Hematocrit 37.3 % (37-47); Hemoglobin 12.3 g/dL (12.0-15.0); Immature Granulocytes Count 0.020 X10^3/uL (0.0-0.0); Mean Corp Hgb Conc 33.0 g/dL (32-36); Mean Corpuscular Volume 96.6 fL (81-99); Mean Platelet Vol. 10.7 fl (6.2-12.0); NRBC Flagged by Analyzer 0 % (0-5); Platelet Count 266 K/mm3 (150-450); RBC Distribution Width CV 14.0 % (11.6-14.6); RBC Distribution Width SD 49.1 fl (35.1-43.9); Red Blood Count 3.86 M/mm3 (4.2-5.4); White Blood Count 7.9 K/mm3 (4.4-11.0)
[2024-10-13 16:05] LABS: AST(SGOT) 32 U/L (<=31); Alanine Aminotransfer ALT/SGPT 47 U/L (<=34); Albumin, Serum 4.1 g/dL (3.4-4.8); Alkaline Phosphatase 107 U/L (35-104); Anion Gap 12 (5-15); BUN 20 mg/dL (4-19); BUN/Creat Ratio 21.8 RATIO (10-20); Calcium,Total 9.6 mg/dL (7.6-11.0); Carbon Dioxide 23.5 mmol/L (21.0-32.0); Chloride 101 mmol/L (98-108); Globulin 3.1 g/dL (2.2-4.2); Glucose 104 mg/dL (70-99); Potassium 4.6 mmol/L (3.3-5.1)
== END | disposition home or self-care (01) ==
LOC: MTLAB 12:46
PROVIDERS: PCP Student in an Organized Health Care Education/Training Program; Referring Provider Internal Medicine Rheumatology; Visit Provider Internal Medicine Rheumatology
DX: M06.4 Inflammatory polyarthropathy (principal); M79.7 Fibromyalgia; Z79.899 Other long term (current) drug therapy
CPT/HCPCS: 36415; 80053; 85025

== ENCOUNTER 2024-10-24 15:30 | Outpatient (RCR) | payer MEDICARE, OTHER, SELFPAY ==
--- NOTE | 2024-10-10 10:41 | HP.PTEVAL ---
Patient's Visit Information Visit Information Visit Information: CHUY GARG is a 84 year old F referred to Physical Therapy by Dr. Cj Olguin MD with a diagnosis of LUMBAR STENOSIS. Date of Evaluation: 10/10/24 Physical Therapist: Mundo Sanchez PT, Cert MDT, OCS Visit Plan Frequency: 2x /Week Duration: 4 Weeks Plan: PT INTERVENTIONS AQUATIC THERAPY LUMBAR FLEXION ,LE FLEXABILITY DLS ,POSTURAL EX'S AND ACTIVITY MODIFICATION Subjective Subjective: This 84 y/o female presents to physical therapy for lumbar stenosis. Patient has had lumbar pain many years. Seen DR Olguin for pain pain management and had injections. DR referred to PT. Patient had MRI showed severe canal stenosis at L2-L3 and L3-L4. Severe left foramina stenosis at L3-L4. Anterolisthesis L3 on L4 and L4-L5. X-rays showed DDD . Medication gabapentin. Symmetrical LB occasionally leg pain. Aggravating walking/standing ,lifting. Alleviating factors sitting ,rest. Bowel/bladder-. Coughing/sneezing -. Patient can affects sleeping. Patient condition affects QOL and function. Patient has had PT in past. Patient goals to decrease pain lumbar SOCIAL: VOCATION: retired Pain Bilateral Back: Pain Intensity (Out of 10): 5 Pain Intensity Range: 7 and 8 Objective Objective: POSTURE: mild forward posture GAIT: reciprocal pattern mild forward posture slow arlin NEURO: denies paresthesia/tingling ,reflexes L3-4,L4-5,L5-S1 2/3 PALPATION: tender LS MMT: quads/hams 4/5 ,hip flexion 4-/5 ,ankle 4/5 FLEXABILITY: hamstrings min tight Special Tests L/S Slump test left side: Negative L/S Slump test right side: Negative L/S Left Straight Leg Raise: Negative L/S Right Straight Leg Raise: Negative Lumbar Standing: Flexion - Mechanical Response: No effect Lumbar Standing: Flexion - Symptoms During Testing: No effect Lumbar Standing: Flexion - Symptoms After Testing: No effect Lumbar Standing: Extension - Mechanical Response: No effect Lumbar Standing: Extension - Symptoms During Testing: Increases Lumbar Standing: Extension - Symptoms After Testing: No worse Lumbar Standing: Right Side Glides - Mechanical Response: No effect Lumbar Standing: Right Side [place] - Symptoms During Testing: Increases Lumbar Standing: Right Side [place] - Symptoms After Testing: No worse Lumbar Standing: Left Side [place] - Mechanical Response: No effect Lumbar Standing: Left Side [place] - Symptoms During Testing: Increases Lumbar Standing: Left Side [place] - Symptoms After Testing: No worse Balance/Special Test Scores Oswestry Low Back Score: 25 Goals Goal 1:: Patient to be I with HEP for back in AQUATICS Goal Time Frame: 4-6 Weeks Goal 2:: Patient to demonstrate 50% improvement with less back pain and improved function Goal Time Frame: 4-6 Weeks Goal 3:: Patient to improve back oswestry score by 5 points to improve QOL and function Goal Time Frame: 4-6 Weeks Goal 4:: Patient to improve function of recovery for ADl's and housework tasks Goal Time Frame: 4-6 Weeks Goal 5:: Patient be able to stand walk > 20 mins for ADL's Goal Time Frame: 4-6 Weeks Rehabilitation Potential Physical Therapy Diagnosis: This patient has lumbar stenosis with pain worse with walking/standing ,better with sitting increases with positioning/motion testing thus benefit from skilled PT Rehabilitation Potential: Good Anticipated Interventions Patient/Client Instruction: Educate patient on: Condition and Plan of Care For the Purpose of:: To increase ROM, To improve muscle performance and motor function, To improve ability to perform ADL's, To increase tolerance to activity/condition/position, To improve ability of physical actions for home/community/work/leisure, To improve health of tissue, To decrease soft tissue restriction and To increase flexibility/ROM Therapeutic Exercise to Include: Strength training, Postural training, Flexibilty training, "In an aquatic setting" and Dynamic Lumbar Stabilization For the Purpose of:: To decrease pain, To improve muscle performance and motor function, To improve ability to perform ADL's, To increase tolerance to activity/condition/position, To improve ability of physical actions for home/community/work/leisure, To improve health of tissue, To decrease soft tissue restriction and To increase flexibility/ROM Text: Thank you for the opportunity to evaluate your patient. For Medicare and Medicare HMO plans, please review the plan of care and approve it. It will need to be FAXED BACK to us at [phone] for Medicare purposes. For Medicare only, by signing this I certify the plan of care. Please let me know if there are questions or concerns regarding this plan of care. Physician Signature: Date:
== END 2024-10-24 19:00 | disposition home or self-care (01) ==
LOC: PT 15:30
PROVIDERS: PCP Student in an Organized Health Care Education/Training Program; Referring Provider Anesthesiology; Visit Provider Anesthesiology
DX: M48.061 Spinal stenosis, lumbar region without neurogenic claudication (principal)
CPT/HCPCS: 97113; 97162

== ENCOUNTER → 2024-11-25 | Outpatient (CLI) | payer MEDICARE, OTHER, SELFPAY ==
--- OUTSIDE RECORDS SUMMARY | 2024-11-24 07:36 | XMS RPT_ITS ---
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 Name Role Phone RADHA ESTEBAN, DR BARRIENTOS Primary Care Unavailable RADHA ESTEBAN, DR BARRIENTOS Attending Unavailable RADHA ESTEBAN, DR BARRIENTOS Primary Care Unavailable YOSVANY HENDERSON, DR VENCES Attending Unavaildalia GARCIA DO, DR BARRIENTOS Primary Care Unavailable STANLEY PEREA DO Attending Unavailable ONELIA GRAHAM MD Consulting Unavailable ONELIA GRAHAM MD Attending Unavailable RADHA ESTEBAN, DR BARRIENTOS Primary Care Unavailable ROMAR DO, DR BARRIENTOS Primary Care Unavailable ROMAR DO, DR BARRIENTOS Attending Unavailable ROMAR DO, DR BARRIENTOS Primary Care Unavailable RIDER DO, DR CELSO Patel Attending Unavailable ROMAR DO, DR BARRIENTOS Primary Care Unavailable CHOUJAA DO, ISIDRO Attending Unavailable ROMAR DO, DR BARRIENTOS Primary Care Unavailable CHOMURTAZAA DO, ISIDRO Attending Unavailable ONELIA GRAHAM MD Attending Unavailable ROMAR DO, DR BARRIENTOS Primary Care Unavailable ONELIA GRAHAM MD Attending Unavailable ROMAR DO, DR BARRIENTOS Primary Care Unavailable NATALIIA GOLDSMITH MD Attending Unavailable ROMAR DO, DR BARRIENTOS Primary Care Unavailable OYSVANY HENDERSON, DR VENCES Attending Unavailabl e RADHA DO, DR BARRIENTOS Primary Care Unavailable JODYAR DO, DR BARRIENTOS Primary Care Unavailable YOSVANY HENDERSON, DR VENCES Attending Unavailabl e PROBLEMS DATE TYPE CONDITION / CODE ATTENDING STATUS JAVIER E 03/21/2024 Admitting Diagnosis Unspecified symptoms and signs involving the genitourinary system / R39.9(ICD-10) STANLEY PEREA DO Active [facility] 03/13/2024 Admitting Diagnosis Cystocele, unspecified / N81.10(ICD-10) ONELIA GRAHAM MD Active [facility] PROCEDURES No Procedure Records Found RESULTS US ABDOMEN LIMITED Observed: 11/24/2024 8:00 AM Status: F Source: [facility] ORIGINAL EXAMINATION: LIMITED ABDOMINAL ULTRASOUND11/24/2024 8:08 am Limited ultrasound of the abdomen attention right upper quadrant COMPARISON: CT 12/04/2021 TECHNIQUE: This report is based on interpretation of permanently recorded ultrasound images. HISTORY: ORDERING SYSTEM PROVIDED HISTORY: Reason for Exam: inflammatory polyarthropathy, increased LFTs FINDINGS: The liver is normal in size and echogenicity. No suspicious focal lesions are seen. There is no intrahepatic bile duct dilatation. The common duct is 8 mm at the itz hepatis which is similar to the remote CT and is considered physiologic within normal limits for this patient's age.. The gallbladder is normally distended without calculus, wall thickening or tenderness. The visualized pancreas shows no focal lesion or mass. Some portions of the pancreas are obscured by bowel gas. No ascites is seen in the Garcia's pouch. Limited survey images of the right kidney shows normal cortical thickness and echogenicity and no pelvocaliectasis. The visualized aorta and IVC are normal in caliber with some atherosclerotic changes of aorta. IMPRESSION: Negative ultrasound. No acute findings.. Unremarkable liver. Interpreted by: Jose Steward MD Preliminary Report By: Jose Steward MD Electronically signed By Joes Steward MD Dictated Date: 11/24/2024 12:46:15 PM Prelim Date: 11/24/2024 12:48:36 PM Sign Date: 11/24/2024 12:48:36 PM Ordering Provider: RU BAR RP CMP Collected: 10/22/2024 1:18 PM Status: F Source: [facility] TYPE CODE TESTS RESULT OUT OF RANGE REFERENCE UNITS LAB GLU(LOINC) Glucose Level 139 High 83-110 mg/dL LAB NA(LOINC) Sodium Level 140 136-145 mmol/L LAB K(LOINC) Potassium Level 3.9 3.5-5.1 mmol/L LAB CL(LOINC) Chloride 102 98-107 mmol/L LAB CO2(LOINC) CO2 28 23-31 mmol/L LAB EBAL(LOINC) Electrolyte Balance 10.0 4.0-15.0 mEq/L LAB BUN(LOINC) BUN 19 High 7-18 mg/dL LAB CRE(LOINC) Creatinine Lvl (s) 1.15 High 0.51-0.95 mg/dL LAB BC(LOINC) BUN/Creatinine Ratio 17 7-27 ratio LAB CA(LOINC) Calcium Lvl 9.3 8.4-10.2 mg/dL LAB PROT(LOINC) Total Protein 7.4 6.4-8.2 G/dL LAB ALB(LOINC) Albumin Level 3.4 3.4-4.8 G/dL LAB GLB(LOINC) Globulin 4.0 2.7-4.4 G/dL LAB AG(LOINC) A/G Ratio 0.8 Low 1.1-2.5 ratio LAB BILT(LOINC) Bili Total 0.4 0.2-1.0 mg/dL Result Comment: Use of this assay is not recommended for patients undergoing treatment with eltrombopag due to the potential for falsely elevated results. LAB AP(LOINC) Alk Phos 103 40-135 U/L LAB AST(LOINC) AST/SGOT 21 10-40 U/L LAB ALT(LOINC) ALT/SGPT 34 14-59 U/L Performed By: #### GFR, CMP #### [address] [place], [place] [address] .GFR Collected: 10/22/2024 1:18 PM Status: F Source: [facility] TYPE CODE TESTS RESULT OUT OF RANGE REFERENCE UNITS LAB eGFR(LOINC) Estimated Glomerular Filtration Rate 47 ml/min/1. 73sqm Result Comment: Stages of Chronic Kidney Disease (CKD) Stage Description eGFR(ml/min/1.73 sq.m.) CKD 1 Normal kidney function or >=90 normal kindney function with possible kidney damage (ex. Proteinuria) CKD 2 Kidney damage with mild loss 60-89 of kidney function CKD 3a Mild to moderate loss of kidney 45-59 function CKD 3b Moderate to severe loss of 30-44 of kindey function CKD 4 Severe loss of kidney function 15-29 CKD 5 Kidney failure <15 Note: (go live 2024) the eGFR calculation was updated to the 2020 CKD-EPI creatinine equation without a race factor to calculate the eGFR results. Performed By: #### GFR, CMP #### [address] [address] BMP Collected: 08/19/2024 10:34 AM Status: F Source: [facility] TYPE CODE TESTS RESULT OUT OF RANGE REFERENCE UNITS LAB GLU(LOINC) Glucose Level 107 83-110 mg/dL LAB NA(LOINC) Sodium Level 139 136-145 mmol/L LAB K(LOINC) Potassium Level 4.5 3.5-5.1 mmol/L LAB CL(LOINC) Chloride 103 98-107 mmol/L LAB CO2(LOINC) CO2 30 23-31 mmol/L LAB EBAL(LOINC) Electrolyte Balance 6.0 4.0-15.0 mEq/L LAB BUN(LOINC) BUN 25 High 7-18 mg/dL LAB CRE(LOINC) Creatinine Lvl (s) 1.02 High 0.51-0.95 mg/dL LAB BC(LOINC) BUN/Creatinine Ratio 25 7-27 ratio LAB CA(LOINC) Calcium Lvl 9.1 8.4-10.2 mg/dL Performed By: #### [id number], B MP, GFR #### [facility] [address] [place], [place] [address] .GFR Collected: 10:34 AM Status: F Source: [facility] TYPE CODE TESTS RESULT OUT OF RANGE REFERENCE UNITS LAB eGFR(LOINC) Estimated Glomerular Filtration Rate 54 ml/min/1. 73sqm Result Comment: Stages of Chronic Kidney Disease (CKD) Stage Description eGFR(ml/min/1.73 sq.m.) CKD 1 Normal kidney function or >=90 normal kindney function with possible kidney damage (ex. Proteinuria) CKD 2 Kidney damage with mild loss 60-89 of kidney function CKD 3a Mild to moderate loss of kidney 45-59 function CKD 3b Moderate to severe loss of 30-44 of kindey function CKD 4 Severe loss of kidney function 15-29 CKD 5 Kidney failure <15 Note: (go live 2024) the eGFR calculation was updated to the 2020 CKD-EPI creatinine equation without a race factor to calculate the eGFR results. Performed By: #### [id number], B MP, GFR #### [id number] [place], [place] [address] APOE Collected: 10:34 AM Status: F Source: [facility] TYPE CODE TESTS RESULT OUT OF RANGE REFERENCE UNITS LAB 404016(LOINC) APOE Results Methodology Note Result Comment: TESTS RESULT FLAG UNITS REF RANGE LAB Methodology: 01 Patient DNA is assayed for the APOE genotype by PCR amplification of a specific region in exon 4 of the APOE gene followed by digestion with restriction enzyme [employer] and separation of fragments by polyacrylamide gel electrophoresis. This approach allows the APOE E2, E3, and E4 alleles to be distinguished. Analytical sensitivity and specificity are >99.5%. Individuals are interpreted as having one of the following genotypes: E2/E2, E3/E3, E4/E4, E2/E3, E2/E4, E3/E4. APO E Genotype 01 E3/E4 (one copy of the APOE4 variant) Interpretation: 01 Positive for one copy of the APOE4 variant that is associated with increased risk for late onset Alzheimer's disease (AD). Therefore the lifetime risk for AD is increased in this individual. However, most individuals with one copy of the APOE4 variant do not develop AD. RECOMMENDATIONS Genetic counseling is recommended. Due to the lack of measures to prevent the development of AD, the ACMG/NSGC guidelines do not recommend presymptomatic testing, but if it is performed, guidelines are provided (Rickey NAVA et al. 2011). The APOE Genotyping: Alzheimer's Risk test is not recommended for children. NOTE: This is not a diagnostic test. Results should be interpreted along with clinical findings and other data. This test evaluates only for the APOE genotype and cannot detect genetic abnormalities elsewhere in the genome. It should be realized that there are possible sources of error including sample misidentification, rare technical errors, trace contamination of PCR reactions, and rare genetic variants that may interfere with analysis. For inquiries or genetic consultation, please call [facility] at . Comment: 01 INFORMATION ABOUT THE APOE GENOTYPE AND ALZHEIMER'S DISEASE Alzheimer's disease (AD) is the most common form of dementia in the elderly and currently affects more than 5 million Americans. It is a progressive neurodegenerative disorder with brain findings of plaques and neurofibrillary tangles containing beta-amyloid and tau protein respectively. The predominant form of AD is late onset (age > 60-65), which can be familial (15-20%) or sporadic. The APOE4 variant increases the risk for late onset AD and may contribute to the pathology of the disease. This risk is increased by approximately 2 to 3-fold for individuals with one copy of the APOE4 variant and by approximately 10 [id number] for individuals with two copies of this variant (E4/E4 genotype). The APOE2 variant has some protective effect against development of late onset AD. The lifetime risk for late onset AD is approximately 10-12% in the general population, though it is higher in women than men and doubles when there is a first degree relative with this disorder. The lifetime risk is approximately 9% for individuals negative for APOE4, and for individuals with E4/E4 may be as high as 25% for males and 45% for females. Among patients with late onset AD, the presence of APOE4 may lead to earlier development of symptoms. However, APOE4 is neither necessary nor sufficient for the development of AD. Approximately 30-50% of patients with late onset AD do not have an APOE4 allele. APOE4 is common, with 25% of the general population having one copy and 1% having two copies of this variant. Among patients with late onset AD, 50-70% are positive for APOE4. The development of late onset AD is influenced by many factors other than APOE4 including age, gender, family history, level of education and history of head trauma. Midlife cardiovascular risk factors in individuals with APOE4 also increase risk for cognitive decline. A number of genetic influences in addition to APOE4 have also been reported and are under investigation. This test was developed and its performance characteristics determined by [facility]. It has not been cleared or approved by the Food and Drug Administration. The FDA has determined that such clearance or approval is not necessary. REFERENCES Hailee Vigil et al. Sex modifies the APOE-related risk of developing Alzheimer disease. Annal Neurol 2014;75(4):563-573 Tera VERDIN. Alzheimer Disease Overview. Proacta). Doyle RIOS et al., editors. [facility]: [facility], [place], [place]. Last revised 2014. Rickey NAVA et al. Genetic counseling and testing for Alzheimer disease: Joint practice guidelines of the [place] [employer] and the National Society of Genetic Counselors. Sharee in Med 2011;13(6)597-605. Eliza GOMEZ. Apolipoprotein E: Implications for AD neurobiology, epidemiology and risk assessment. Neurobiology of Aging 2011;32:778-790 FLAG LEGEND: L-Low Normal,H-High Normal,LL-Alert Low,HH-Alert High <-Panic Low,>-Panic High,A-Abnormal,AA-Critical Abnormal Performed at: 01 [facility] [address] [address] Johnathon Rg MD, Performed At: [facility] [address] [id number] Arcenio Hanley MD Ph:[phone] Performed By: #### [id number], B MP, GFR #### [address] [place], [place] [address] [facility] LC Collected: 10:34 AM Status: F Source: [facility] Order Comment: SEND TO [facility] Phosphorylated tau 217 [id number] FROZEN, Poured off! TYPE CODE TESTS RESULT OUT OF RANGE REFERENCE UNITS LAB 116737(LOINC) [facility] Test Result COMMENT Result Comment: Test Ordered: [id number] p-[id number] 0.57 [H ] pg/mL L9 Reference Range: 0.00-0.18 This test was developed and its performance characteristics determined by [employer]. It has not been cleared or approved by the Food and Drug Administration. Clinical cutoff value was established using samples from a patient cohort characterized with amyloid PET data. A p-hkx081 value of >0.18 is a reported surrogate marker for beta amyloid pathology, and can be used to facilitate biological identification of Alzheimer's disease (1). p-nmj979 has also been used in clinical trials to monitor patients on anti-amyloid therapy (2,3). Test performed by [employer] chemiluminescent enzyme immunoassay (CLEIA). Values obtained with different methods cannot be used interchangeably. The validated limit of quantification is 0.06 pg/mL. Assay detection limit is 0.03 pg/mL. Footnotes Comment L9 1. Cj Dupree, et al. Diagnostic Accuracy of a Plasma Phosphorylated Tau 217 Immunoassay for Alzheimer Disease Pathology. MATTHIAS neurology (2023). 2. Cj Dupree et al. Differential roles of A42/40, p-ckf415 and p-gcb752 for Alzheimer's trial selection and disease monitoring. Nature medicine 28.12 (2021): 3478-8502. 3. Denise JOHNSON, Nadine M, Franc[place]sca [place], et al. Association of Donanemab Treatment With Exploratory Plasma Biomarkers in Early Symptomatic Alzheimer Disease: A Secondary Analysis of the TRAILBLAZER-ALZ Randomized Clinical Trial. MATTHIAS Neurol. 2021;79(12):3748-9235. Performed At: [facility] [id number] Mono Charlton PhD Ph:[phone] Performed At: [employer] [address] [place] [address], [place] [id number] Rafael Aleman MD Ph:[phone] [facility]) LC Order Number [id number] LAB [facility]) Test Name phosphorylated tau 217 Performed By: #### [id number] ## ## [address] [address] CUR Observed: 03/31/2024 10:34 AM Status: F Source: [facility] . MICRO - Microbiology PROCEDURE: Urine Culture [*1] SOURCE: Urine, Clean Catch BODY SITE: Bladder COLLECTED DATE/TIME: 03/31/2024 10:34 EST RECEIVED DATE/TIME: 03/31/2024 18:35 EST START DATE/TIME: 03/31/2024 18:36 EST FREE TEXT SOURCE: FINAL REPORTS Final Report [] Verified Date/Time/Personnel: 04/01/2024 14:27 EST <10,000 cfu/ml. No Significant growth. Sensitivity not indicated. Performing Locations *1: This test was performed at: [facility], [address] [place] [address], [address] [place] [address] CUR Observed: 03/21/2024 11:50 AM Status: F Source: [facility] . MICRO - Microbiology PROCEDURE: Urine Culture [*1] SOURCE: Urine, Clean Catch BODY SITE: COLLECTED DATE/TIME: 03/21/2024 11:50 EST RECEIVED DATE/TIME: 03/21/2024 18:51 EST START DATE/TIME: 03/21/2024 18:51 EST FREE TEXT SOURCE: FINAL REPORTS Final Report [] Verified Date/Time/Personnel: 03/23/2024 09:27 EST >100,000 cfu/ml Escherichia coli PRELIMINARY REPORTS Preliminary Report [] Verified Date/Time/Personnel: 03/22/2024 12:33 EST >100,000 cfu/ml Escherichia coli DENIA to follow SUSCEPTIBILITY RESULTS Escherichia coli Antibiotic DENIA Dilut DENIA Inter Ampicillin >16 Resistant Ampicillin/ >16/8 Resistant Sulbactam Aztreonam <=4 Susceptible Cefazolin >16 Resistant Ceftazidime/ <=4 Susceptible Avibactam Ceftolozane/ <=2 Susceptible Tazobactam Ceftriaxone <=1 Susceptible Cefuroxime 8 Susceptible Ciprofloxacin <=0.25 Susceptible Ertapenem <=0.5 Susceptible Gentamicin <=2 Susceptible ID Panel Not Not Applicable Applicable Imipenem <=1 Susceptible Levofloxacin <=0.5 Susceptible Meropenem <=1 Susceptible Minocycline <=4 Susceptible Nitrofurantoin <=32 Susceptible Piperacillin/ <=8 Susceptible Tazobactam Trimethoprim/ <=0.5/9.5 Susceptible Sulfa Performing Locations *1: This test was performed at: [facility], [address] [place] [address], [facility] , [place] CT ABDOMEN/PELVIS W/O CONTRAST Observed: 03/16/2024 10:53 PM Status: F Source: [facility] ORIGINAL EXAMINATION: CT OF THE ABDOMEN AND PELVIS WITHOUT CONTRAST 03/16/2024 10:55 pm TECHNIQUE: CT of the abdomen and pelvis was performed without the administration of intravenous contrast. Multiplanar reformatted images are provided for review. Automated exposure control, iterative reconstruction, and/or weight based adjustment of the mA/kV was utilized to reduce the radiation dose to as low as reasonably achievable. COMPARISON: 12/04/2021 HISTORY: ORDERING SYSTEM PROVIDED HISTORY: Reason for Exam: pt had bladder surgery a week ago and has constipation and difficulty urinating since the surgery constipation FINDINGS: Lower Chest: Normal heart size. No focal consolidation or pleural effusion. Organs: The liver and biliary tract appears normal. The spleen appears normal. The pancreas appears normal. The adrenal glands appear normal. Stable chronic areas of scarring in both kidneys. The kidneys appear normal with no evidence of nephrolithiasis or hydronephrosis. GI/Bowel: Moderate stool burden throughout the colon. There is no evidence of obstruction. The appendix is normal. Pelvis: A Mason catheter is in place. Otherwise the pelvic organs appear normal. Peritoneum/Retroperitoneum: There is no intraperitoneal free air or ascites. Atherosclerosis of the aorta and major branches without aneurysm is noted. No lymphadenopathy is identified. Bones/Soft Tissues: Degenerative changes are noted in the spine. Status post left hip arthroplasty. No focal soft tissue abnormality is identified. IMPRESSION: 1. No acute intra-abdominal or pelvic process. 2. Moderate stool burden throughout the colon. Interpreted by: Hill Oh Preliminary Report By: Hill Oh Electronically signed By Hill Oh Dictated Date: 03/16/2024 10:58:07 PM Prelim Date: 03/16/2024 11:02:56 PM Sign Date: 03/16/2024 11:02:56 PM Ordering Provider: ISIDRO SHAH ABO/RH (GEL) Collected: 03/13/2024 6:10 AM Status: F Source: [facility] TYPE CODE TESTS RESULT OUT OF RANGE REFERENCE UNITS LAB ABORH(LOINC) ABO/Rh Interp O POS Unknown Performed By: #### LAVONGEL, A BSGEL #### [address] [address] ABS (GEL) Collected: 03/13/2024 6:10 AM Status: F Source: [facility] TYPE CODE TESTS RESULT OUT OF RANGE REFERENCE UNITS LAB ABSCINT(LOINC) ABSC Interp (Gel) Negative ABSC Performed By: #### LAVONGEL, A BSGEL #### [address] [address] ABO/RH (GEL) Collected: 11:45 AM Status: F Source: [facility] TYPE CODE TESTS RESULT OUT OF RANGE REFERENCE UNITS LAB ABORH(LOINC) ABO/Rh Interp O POS Unknown Performed By: #### ABOGEL, A BSGEL, DIFF, MORPH, CBC #### [address] [address] ABS (GEL) Collected: 5 11:45 AM Status: F Source: [facility] TYPE CODE TESTS RESULT OUT OF RANGE REFERENCE UNITS LAB ABSCINT(LOINC) ABSC Interp (Gel) Negative ABSC Performed By: #### ABOGEL, A BSGEL, DIFF, MORPH, CBC #### [address] [address] CBC Collected: 5 11:45 AM Status: C Source: [facility] Order Comment: Pre-Admission Testing TYPE CODE TESTS RESULT OUT OF RANGE REFERENCE UNITS LAB WBC(LOINC) WBC 5.4 4.5-10.8 10 3/mcL LAB RBCCT(LOINC) RBC 3.98 Low 4.10-5.30 10 6/mcL LAB HGB(LOINC) Hgb 13.0 12.0-16.0 G/dL LAB HCT(LOINC) Hct 38.9 34.0-46.0 % LAB MCV(LOINC) MCV 97.7 80.0-99.0 fL LAB MCH(LOINC) MCH 32.7 27.0-33.0 pg LAB MCHC(LOINC) MCHC 33.5 32.0-36.0 G/dL LAB RDW(LOINC) RDW 14.2 11.5-15.5 % LAB PLT(LOINC) Platelet 245 150-450 10 3/mcL LAB MPV(LOINC) MPV 8.6 6.6-10.5 fL Performed By: #### Musa COWAN BSGEL, DIFF, MORPH, CBC #### [address] [address] .MORPH Collected: 02/29/2024 11:45 AM Status: F Source: [facility] TYPE CODE TESTS RESULT OUT OF RANGE REFERENCE UNITS LAB RBCM(LOINC) RBC Morph Normal LAB PLTE(LOINC) Platelet Estimate Normal LAB LRGPLTS(LOINC) Large Platelets Few Performed By: #### Musa COWAN BSGEL, DIFF, MORPH, CBC #### [address] [address] .MANUAL DIFF Collected: 02/29/2024 11:45 AM Status: F Source: [facility] TYPE CODE TESTS RESULT OUT OF RANGE REFERENCE UNITS LAB NEUM(LOINC) Neutrophil %, Manual 33.0 Low 50.0-75.0 % LAB LYMM(LOINC) Lymphocyte %, Manual 44.0 High 20.0-40.0 % LAB MONM(LOINC) Monocyte %, Manual 8.0 2.0-13.0 % LAB EOM(LOINC) Eosinophil %, Manual 3.0 0.0-7.0 % LAB BASM(LOINC) Basophil %, Manual 1.0 0.0-2.5 % LAB ALYM(LOINC) Atypical Lymphs 11.0 High 0.0-5.0 % LAB NRBC(LOINC) Nucleated RBC 0.0 /100 W BC LAB ANEUM(LOINC) Neutrophil, Abs Manual 1.8 Low 2.3-8.1 10 3/mcL LAB ABLYMM(LOINC) Lymphocyte, Abs Manual 2.4 0.9-4.3 10 3/mcL LAB AMONM(LOINC) Monocyte, Abs Manual 0.4 0.1-1.4 10 3/mcL LAB AEOSM(LOINC) Eosinophil, Abs Manual 0.2 0.0-0.7 10 3/mcL LAB ABASM(LOINC) Basophil, Abs Manual 0.0 0.0-0.2 10 3/mcL Performed By: #### Musa COWAN BSGEL, DIFF, MORPH, CBC #### [address] [address] MRI FOOT W/O CONTRAST RIGHT Observed: 11:45 AM Status: F Source: [facility] ORIGINAL EXAMINATION: MRI OF THE RIGHT FOOT WITHOUT CONTRAST, 12/31/2023 11:11 am TECHNIQUE: Multiplanar multisequence MRI of the right foot was performed without the administration of intravenous contrast. COMPARISON: Radiograph dated 10/18/2020 HISTORY: ORDERING SYSTEM PROVIDED HISTORY: Reason for Exam: bilateral foot pain persistent FINDINGS: There is no evidence of acute fracture, osteonecrosis or suspicious marrow lesion. There is no joint effusion or synovitis. Multifocal midfoot degenerative changes. Mild hallux valgus with severe 1st MTP degenerative change. Prominent dorsal spur at the 1st metatarsal head. Hallux sesamoids are intact without proximal migration. The plantar plates of the metatarsophalangeal joints appear intact. Trace 3rd web space intermetatarsal bursitis. There is no Martínez's neuroma. The intrinsic musculature of the foot appears intact. Imaged portions of the plantar fascia appear intact. Lisfranc's ligament appears intact. The flexor tendons appear intact. The extensor tendons appear intact. There is no soft tissue edema. There is no evidence of a solid or cystic soft tissue mass. Soft tissue callus formation at the weight-bearing portion of the 5th MTP joint. IMPRESSION: Mild hallux valgus with severe 1st MTP degenerative change and prominent dorsal spur at the 1st metatarsal head. Soft tissue callus formation at the weight-bearing portion the 5th MTP joint. Interpreted by: Caitlin Álvarez Preliminary Report By: Caitlin Álvarez Electronically signed By Caitlin Álvarez Dictated Date: 01/01/2024 9:56:58 AM Prelim Date: 01/01/2024 10:05:34 AM Sign Date: 01/01/2024 10:05:34 AM Ordering Provider: FLOYD GARCIA MRI FOOT W/O CONTRAST LEFT Observed: 05/2023 11:00 AM Status: F Source: [facility] ORIGINAL EXAMINATION: MRI OF THE LEFT FOOT WITHOUT CONTRAST, 12/31/2023 10:58 am TECHNIQUE: Multiplanar multisequence MRI of the left foot was performed without the administration of intravenous contrast. COMPARISON: Left foot radiograph dated 10/18/2020 HISTORY: ORDERING SYSTEM PROVIDED HISTORY: Reason for Exam: bilateral foot pain persistent FINDINGS: Please note that the distal phalanx of the 1st toe is incompletely imaged on all series. There is no evidence of acute fracture, osteonecrosis or suspicious marrow lesion. There is no joint effusion or synovitis. Moderate midfoot chondrosis and degenerative change. Moderate 1st MTP and sesamoid metatarsal degenerative change. The hallux sesamoids appear intact. There is no proximal migration. Enthesopathy at the base of the 5th metatarsal. The plantar plates of the metatarsophalangeal joints appear intact. There is no intermetatarsal bursitis. There is no Martínez's neuroma. The intrinsic musculature of the foot appears intact. Imaged portions of the plantar fascia appear intact. Lisfranc's ligament appears intact. The flexor tendons appear intact. The extensor tendons appear intact. There is no soft tissue edema. There is no evidence of a solid or cystic soft tissue mass. Soft tissue callus formation at the weight-bearing portion of the 5th MTP joint. IMPRESSION: Multifocal midfoot degenerative changes most pronounced at the 1st MTP and sesamoid metatarsal joint space. Soft tissue callus formation at the weight-bearing portion of the 5th MTP joint. Interpreted by: Caitlin Álvarez Preliminary Report By: Caitlin Álvarez Electronically signed By Caitlin Álvarez Dictated Date: 01/01/2024 9:46:45 AM Prelim Date: 01/01/2024 9:56:44 AM Sign Date: 01/01/2024 9:56:44 AM Ordering Provider: FLOYD PARKS No Allergies Records Found ENCOUNTERS ADMIT/DISCHARGE ACCOUNT NUMBER ADMITTING ENCOUNTER CLASS LOC ATION SOURCE 11/24/2024/ 5 [id number] [facility] 10/23/2024 [id number] [facility] 10/22/2024/ 5 [id number] [facility] 08/19/2024/ 5 [id number] [facility] [place] 04/17/2024/ 5 [id number] [facility] 03/31/2024/ 5 [id number] [facility] 03/21/2024/ 5 [id number] Amb[facility] 03/17/2024/ 5 [id number] [facility] [place] 03/17/2024/ 5 [id number] [facility] [place] [facility] 03/16/2024/ 5 [id number] [facility] [place] [facility] 03/13/2024/ 5 [id number] [facility] [place]: 0001Bed: A [facility] 02/29/2024/ 5 [id number] Amb[facility] 12/31/2023/ 4 [id number] Amb[facility] PAYERS ENCOUNTER GUARANTOR PAYER SUBSCRIBER SOURCE 11/24/2024 CHUY PRAKASH: [place] [email or web address]: (HP) Primary Insurance:MEDICARE PART B INSCOPolicy Number: [id number] Date:2356-66-16Ytxb Name:[facility] Administrators [address] [address], [place] [address]OW: CHUY PRAKASH: [id number] [place] [address]Wqn: (HP) (WP) [facility] 11/24/2024 Secondary Insurance:EVERENCE INSCOPolicy Number: [id number] Date:6139-22-33Cnfu Name:[facility] [address] [place] [address]IM: CHUY PRAKASH: [id number] [place] [address]Faf: (HP) (WP) [facility] 10/23/2024 CHUY PRAKASH: [id number] [place] [email or web address]: (HP) Primary Insurance:MEDICARE PART B INSCOPolicy Number: [id number] Date:5394-90-09Vgju Name:[facility] Administrators [facility] [address], [place] [address]LI: CHUY PRAKASH: [id number] [place] [address]Cht: (HP) (WP) [facility] 10/23/2024 Secondary Insurance:EVERENCE INSCOPolicy Number: [id number] Date:3367-95-58Muqb Name:[place] [address]YX: CHUY PRAKASH: [id number] [place] [address]Gap: (HP) (WP) [facility] 10/22/2024 CHUY PRAKASH: [place] [email or web address]: (HP) Primary Insurance:MEDICARE PART B INSCOPolicy Number: [id number] Date:2199-98-92Umsb Name:[facility] Administrators [address] [address]FZ: CHUY PRAKASH: [id number] [place] [address]Rbp: (HP) (WP) [facility] 10/22/2024 Secondary Insurance:EVERENCE INSCOPolicy Number: [id number] Date:2480-58-20Ilxz Name:[place] [address]JA: CHUY PRAKASH: [id number] [place] [address]Wpv: (HP) (WP) [facility] 08/19/2024 CHUY PRAKASH: [id number] [place] [address]~[email or web address]: (HP) Primary Insurance:MEDICARE PART B INSCOPolicy Number: [id number] Date:3111-67-54Sodj Name:[facility] Administrators [address] [address], [place] [address]KU: CHUY PRAKASH: [id number] [place] [address]Mff: (HP) (WP) [facility] 08/19/2024 Secondary Insurance:EVERENCE INSCOPolicy Number: [id number] Date:3600-12-94Oush Name:[place] [address]CM: CHUY PRAKASH: [id number] [place] [address]Akv: (HP) (WP) [facility] 04/17/2024 CHUY PRAKASH: [place] [email or web address]: (HP) Primary Insurance:MEDICARE PART B INSCOPolicy Number: [id number] Date:6786-62-89Xzgj Name:[facility] Administrators [facility] [address] [address], [place] [address]IE: CHUY PRAKASH: [id number] [place] [address]Ysf: (HP) (WP) [facility] 04/17/2024 Secondary Insurance:EVERENCE INSCOPolicy Number: [id number] Date:3408-89-36Dtzy Name:[place] [address]PI: CHUY PRAKASH: [id number] [place] [address]Rnw: (HP) (WP) [facility] 03/31/2024 CHUY PRAKASH: [place] [email or web address]: (HP) Primary Insurance:MEDICARE PART B INSCOPolicy Number: [id number] Date:5971-04-49Xsxq Name:[facility] Administrators [address] [address]AR: CHUY PRAKASH: [id number] [place] [address]Sun: (HP) (WP) [facility] 03/31/2024 Secondary Insurance:EVERENCE INSCOPolicy Number: [id number] Date:8513-94-75Tblr Name:[facility] [address]ela [address] [place] [address]XE: CHUY PRAKASH: [id number] [place] [address]Ccq: (HP) (WP) [facility] 03/21/2024 CHUY PRAKASH: [place] [email or web address]: (HP) Primary Insurance:MEDICARE PART B INSCOPolicy Number: [id number] Date:3532-70-12Avuz Name:[facility] Administrators [facility] [address] [address], [place] [address]JG: CHUY PRAKASH: [id number] [place] [address]Val: (HP) (WP) [facility] 03/21/2024 Secondary Insurance:EVERENCE INSCOPolicy Number: [id number] Date:3407-79-95Isfh Name:[place] [address]ZB: CHUY PRAKASH: [id number] [place] [address]Sgg: (HP) (WP) [facility] 03/17/2024 CHUY PRAKASH: [place] [address]~[email or web address]: (HP) Primary Insurance:MEDICARE PART B INSCOPolicy Number: [id number] Date:7756-10-43Yosk Name:[facility] Administrators [address] [address]LQ: CHUY PRAKASH: [id number] [place] [address]Yvx: (HP) (WP) [facility] 03/17/2024 Secondary Insurance:EVERENCE INSCOPolicy Number: [id number] Date:4551-24-53Gfft Name:[place] [address]EA: CHUY PRAKASH: [id number] [place] [address]Cau: (HP) (WP) [facility] 03/17/2024 CHUY PRAKASH: [place] [email or web address]: (HP) Primary Insurance:MEDICARE PART B INSCOPolicy Number: [id number] Date:0532-68-64Ydxm Name:[facility] Administrators [facility] [address] [place] [address]FK: CHUY PRAKASH: [id number] [place] [address]Dks: (HP) (WP) [facility] 03/17/2024 Secondary Insurance:EVERENCE INSCOPolicy Number: [id number] Date:2997-39-70Ovcs Name:[employer] [place] [address]JC: CHUY PRAKASH: [id number] [place] [address]Xdr: (HP) (WP) [facility] 03/16/2024 CHUY PRAKASH: [place] [email or web address]: (HP) Primary Insurance:MEDICARE PART B INSCOPolicy Number: [id number] Date:7671-65-76Uiga Name:PCGKwabena GARDNER [address] [address], [place] [address]SI: CHUY PRAKASH: [id number] [place] [address]Uye: (HP) (WP) [facility] 03/16/2024 Secondary Insurance:EVERENCE INSCOPolicy Number: [id number] Date:1008-05-54Ejmv Name:[place] [address]RQ: CHUY PRAKASH: [id number] [place] [address]Ppj: (HP) (WP) [facility] 03/13/2024 CHUY PRAKASH: [place] [email or web address]: (HP) Primary Insurance:MEDICARE PART B INSCOPolicy Number: [id number] Date:6571-41-99Ctxy Name:[facility] Administrators [facility] [address], [place] [address]EZ: CHUY PRAKASH: [id number] [place] [address]Mit: (HP) (WP) [facility] 03/13/2024 Secondary Insurance:EVERENCE INSCOPolicy Number: [id number] Date:0430-81-19Xjnz Name:[facility] [address] [place] [address]UN: CHUY PRAKASH: [id number] [place] [address]Hna: (HP) (WP) [facility] 02/29/2024 CHUY PRAKASH: [place] [email or web address]: (HP) Primary Insurance:MEDICARE PART B INSCOPolicy Number: [id number] Date:8995-49-01Fdqi Name:[facility] Administrators [address] [address], [place] [address]PL: CHUY PRAKASH: [id number] [place] [address]Ysm: (HP) (WP) [facility] 02/29/2024 Secondary Insurance:EVERENCE INSCOPolicy Number: [id number] Date:1304-11-24Aibt Name:ROD Mistry [address]EH: CHUY PRAKASH: [id number] [place] [address]Dwv: (HP) (WP) [facility] 12/31/2023 CHUY PRAKASH: [place] [email or web address]: (HP) Primary Insurance:MEDICARE PART B INSCOPolicy Number: [id number] Date:0596-91-71Pvov Name:ANNIEKwabena GARDNER [address] [address], [place] [address]MF: CHUY PRAKASH: [id number] [place] [address]Tfi: (HP) (WP) [facility] 12/31/2023 Secondary Insurance:EVERENCE INSCOPolicy Number: [id number] Date:1604-17-65Ytbk Name:ROD Mistry [address]LG: CHUY PRAKASH: [id number] [place] [address]Ink: (HP) (WP) [facility]
[2024-11-25 15:42] LABS: Hematocrit 36.9 % (37-47); Hemoglobin 12.2 g/dL (12.0-15.0); Immature Granulocytes Count 0.020 X10^3/uL (0.0-0.0); Mean Corp Hgb Conc 33.1 g/dL (32-36); Mean Corpuscular Volume 96.3 fL (81-99); Mean Platelet Vol. 11.3 fl (6.2-12.0); NRBC Flagged by Analyzer 0 % (0-5); Platelet Count 209 K/mm3 (150-450); RBC Distribution Width CV 13.7 % (11.6-14.6); RBC Distribution Width SD 48.4 fl (35.1-43.9); Red Blood Count 3.83 M/mm3 (4.2-5.4); White Blood Count 7.3 K/mm3 (4.4-11.0)
[2024-11-25 16:18] LABS: AST(SGOT) 23 U/L (<=31); Alanine Aminotransfer ALT/SGPT 15 U/L (<=34); Albumin, Serum 4.2 g/dL (3.4-4.8); Alkaline Phosphatase 84 U/L (35-104); Anion Gap 11 (5-15); BUN 20 mg/dL (4-19); BUN/Creat Ratio 21.6 RATIO (10-20); Calcium,Total 9.5 mg/dL (7.6-11.0); Carbon Dioxide 24.2 mmol/L (21.0-32.0); Chloride 102 mmol/L (98-108); Globulin 2.8 g/dL (2.2-4.2); Glucose 139 mg/dL (70-99); Potassium 4.1 mmol/L (3.3-5.1)
== END | disposition home or self-care (01) ==
LOC: MTLAB 12:36
PROVIDERS: PCP Student in an Organized Health Care Education/Training Program; Referring Provider Internal Medicine Rheumatology; Visit Provider Internal Medicine Rheumatology
DX: M06.4 Inflammatory polyarthropathy (principal); M79.7 Fibromyalgia; Z79.899 Other long term (current) drug therapy
CPT/HCPCS: 36415; 80053; 85025

== ENCOUNTER → 2025-02-02 | Outpatient (CLI) | payer MEDICARE, OTHER, SELFPAY ==
[2025-02-02 17:50] LABS: Hematocrit 39.5 % (37-47); Hemoglobin 12.8 g/dL (12.0-15.0); Immature Granulocytes Count 0.010 X10^3/uL (0.0-0.0); Mean Corp Hgb Conc 32.4 g/dL (32-36); Mean Corpuscular Volume 97.5 fL (81-99); Mean Platelet Vol. 10.9 fl (6.2-12.0); NRBC Flagged by Analyzer 0 % (0-5); Platelet Count 249 K/mm3 (150-450); RBC Distribution Width CV 14.1 % (11.6-14.6); RBC Distribution Width SD 50.4 fl (35.1-43.9); Red Blood Count 4.05 M/mm3 (4.2-5.4); White Blood Count 7.6 K/mm3 (4.4-11.0)
[2025-02-02 18:36] LABS: AST(SGOT) 28 U/L (<=31); Alanine Aminotransfer ALT/SGPT 19 U/L (<=34); Albumin, Serum 4.2 g/dL (3.4-4.8); Alkaline Phosphatase 97 U/L (35-104); Anion Gap 11 (5-15); BUN 16 mg/dL (4-19); BUN/Creat Ratio 15.7 RATIO (10-20); Calcium,Total 9.5 mg/dL (7.6-11.0); Carbon Dioxide 25.3 mmol/L (21.0-32.0); Chloride 102 mmol/L (98-108); Globulin 2.8 g/dL (2.2-4.2); Glucose 91 mg/dL (70-99); Potassium 4.1 mmol/L (3.3-5.1)
== END | disposition home or self-care (01) ==
LOC: MTLAB 15:21
PROVIDERS: PCP Student in an Organized Health Care Education/Training Program; Referring Provider Internal Medicine Rheumatology; Visit Provider Internal Medicine Rheumatology
DX: M06.4 Inflammatory polyarthropathy (principal); M79.7 Fibromyalgia; Z79.899 Other long term (current) drug therapy
CPT/HCPCS: 36415; 80053; 85025